=== PATIENT | female | born 1990 | race Caucasian/White ===

== ENCOUNTER 2017-08-03 17:12 | Inpatient (IN) | payer SELFPAY ==
[~2017-08-03] VITALS: Ht 167.6 cm; Wt 92.0 kg
[2017-08-03] MEDS ORDERED: ONDANSETRON 4 MG INJ IV STA ×2 (18:14→19:32)
[2017-08-03] MEDS ORDERED: SOD CHLORIDE 0.9% 1,000 ML IV STA (18:14)
[2017-08-03] MEDS ORDERED: morphine 4 MG/ML VIAL IV STA ×2 (18:14→19:32)
--- NOTE | 2017-08-03 19:16 | RADRPT ---
PROCEDURE: US Abdomen. CLINICAL INDICATION: abdominal pain TECHNIQUE: Multiple real-time images were acquired of the patient's right upper quadrant abdomen a nd retroperitoneum utilizing a high resolution transducer. COMPARISON: None FINDINGS: The study is limited due to the patient's body habitus and inability to hold breath. The liver demonstrates increased echogenicity. The liver is normal in size and no focal solid lesio ns are seen. The liver measures 17.5 cm in length. The portal vein is patent with normal direction o f flow. No intrahepatic biliary dilatation is seen. No gallstones are identified within the gallbladder. There is no pericholecystic fluid or gallbladd er wall thickening. The common bile duct measures 4.0 mm in maximal dimension. The visualized portions of the pancreas are unremarkable. The tail of the pancreas is not seen. No free fluid is identified. The right kidney is normal in size, and demonstrate normal echogenicity and cortical thickness. The right kidney measures 11.5 cm in long dimension. There is no evidence of hydronephrosis. There are no kidney stones. RPTAT: AA IMPRESSION: Mild fatty infiltration of the liver. No evidence of gallstones. .Prince Joyner MD, MD Date Time Electronically viewed and signed by .Prince Joyner MD, on 08/03/2017 19:16 .S/
[2017-08-03] MEDS ORDERED: SOD CHLORIDE 0.9% 1,000 ML IV SCH (20:26)
[2017-08-03] MEDS ORDERED: METOCLOPRAMIDE 10 MG INJ IV ONE (20:30)
[2017-08-03] MEDS ORDERED: DEXTROSE 50% 50 ML SYRINGE IV PRN ×4 (20:30→22:30)
[2017-08-03] MEDS ORDERED: METOCLOPRAMIDE 10 MG INJ IV PRN (20:30)
[2017-08-03] MEDS ORDERED: SOD CHLORIDE 0.9% 1,000 ML IV ONE (20:30)
[2017-08-03] MEDS ORDERED: ACETAMINOPHEN 650MG/20.3ML CUP PO PRN (20:30)
--- NOTE | 2017-08-03 20:34 | HP ---
Date/Time of Note Date/Time of Note DATE: 08/03/17 TIME: 20:34 Assessment/Plan VTE Prophylaxis VTE Prophylaxis Intervention: SCD's Assessment/Plan Chief Complaint/Hosp Course 3.This is a 26 year female being admitted to the ICU floor for: #1 DKA: Secondary to long-standing history of diabetes and noncompliance of medications. At the current time will initiate DKA protocol. initiate insulin drip. BMPs every 2-3 hours. Potassium replacement and IV fluids as indicated. Hemoglobin A1c. Endocrine consult: #2 Diabetes mellitus: We will check hemoglobin A1c, currently patient will be on DKA protocol, please see #1. Initiate home medications as indicated based on hemoglobin A1c levels and endocrine recommendations. Patient reports adverse side effects to metformin so she will not be able to be on them. Check urine microalbumin. Initiate MIKEY if indicated. #3 hypertension: Patient reports a history of hypertension will need to monitor blood pressure. Start MIKEY inhibitor as first agent if patient does indeed have hypertension. #4 obesity: We will check hemoglobin A1c, lipid panel, TSH #5 leukocytosis: Patient is afebrile. And currently no source of infection at this time. Will continue to monitor the patient repeat white blood cell count in the a.m. And observe for any signs of infection. #6 DVT GI prophylaxis: SCDs, Protonix Further treatment strategy will be provided as per the clinical course Problems: HPI/ROS Admit Date/Time Admit Date/Time Hx of Present Illness Chief complaint: Nausea vomiting, abdominal pain This is a 26-year-old female with past medical history of type 2 diabetes diagnosed in 2008, not taking diabetes medications as she ran out of insurance. Currently to the emergency department with complaints of dizziness, multiple episodes of nausea and vomiting which began this morning. She has had 10 episodes of nonbilious and nonbloody emesis. Patient states that she was drinking last night as well. Times are intermittent but worsening. She denies any significant fevers, chills, excessive thirst, excessive urination, or other symptoms currently. Allergies: Metformin Medications: None ROS Const: As per HPI Eyes : No pain discharge or redness or change in visual acuity ENT: No pain, sore throat, congestion, congestion, dysphagia or discharge Respiratory: No shortness of breath, cough, sputum, wheezing, or pleuritic pain Cardiovascular: No chest pain, palpitation, PND, or edema GI : As per HPI Genitourinary: No dysuria, hematuria, flank pain , discharge or CVA tenderness Musculoskeletal: No joint pain, back pain, neck pain, restricted range of motion in neck or joints Skin: No rash, bruising or hives Neuro: No headache, dizziness, syncope, seizure, focal weakness Endocrine: As per HPI Psych: No hallucination, depression, anxiety or suicidal ideation PMH/Family/Social Past Medical History Diabetes mellitus, hypertension Past Surgical History Pilonidal cyst removal Social History Alcohol Use: occasionally Smoking Status: Current every day smoker (Half a pack per day 13 years,) Exam/Review of Systems Vital Signs Vitals Vital Signs Date Time Temp Pulse Resp B/P Pulse Ox O2 Delivery O2 Flow Rate FiO2 08/03/17 19:55 99.2 60 20 138/76 97 Room Air Exam Exam General: Patient is sitting in bed in moderate distress from repeated bouts of vomiting, obese HEENT: Atraumatic, normocephalic. The pupils are equal, round and reactive. Extraocular motor are intact Neck: Supple with full range of motion. No rigidity or meningismus Chest: Nontender Lungs: Clear to auscultation bilaterally no crackles rales or wheezing Heart: Normal S1-S2, Regular rhythm and rate. No murmur, S3, or S4 Abdomen: Soft, nondistended, mild tenderness at the umbilical region, normal bowel sound, Extremities: Normal to inspection, no edema no cyanosis Neurologic: Normal mental status, speech normal, cranial nerves II through XII are intact, motor and sensory are intact, no focal weakness Additional Comments PROCEDURE: US Abdomen. CLINICAL INDICATION: abdominal pain TECHNIQUE: Multiple real-time images were acquired of the patient's right upper quadrant abdomen and retroperitoneum utilizing a high resolution transducer. COMPARISON: None FINDINGS: The study is limited due to the patient's body habitus and inability to hold breath. The liver demonstrates increased echogenicity. The liver is normal in size and no focal solid lesions are seen. The liver measures 17.5 cm in length. The portal vein is patent with normal direction of flow. No intrahepatic biliary dilatation is seen. No gallstones are identified within the gallbladder. There is no pericholecystic fluid or gallbladder wall thickening. The common bile duct measures 4.0 mm in maximal dimension. The visualized portions of the pancreas are unremarkable. The tail of the pancreas is not seen. No free fluid is identified. The right kidney is normal in size, and demonstrate normal echogenicity and cortical thickness. The right kidney measures 11.5 cm in long dimension. There is no evidence of hydronephrosis. There are no kidney stones. RPTAT: AA IMPRESSION: Mild fatty infiltration of the liver. No evidence of gallstones. .Prince Joyner MD, MD Date Time Electronically viewed and signed by .Prince Joyner MD, on 08/03/2017 19: 16 .S/ CC: NABILA WRIGHT PA-C Labs Result Diagram: 08/03/17181408/03/171814 Medications Medications Current Medications Sodium Chloride (NS) 1,000 ml @ 1,000 mls/hr Q1H ONCE IV Last administered on 08/03/17t 20:29; Admin Dose 1,000 MLS/HR; Start 08/03/17 at 20:30; Stop at 21:29 Dextrose (D50w Syringe) 50 ml Q15M PRN IV For BS 50 or less; Start 08/03/17 at 20:30; Status UNV Dextrose 25 ml 25 ml Q15M PRN IV BS between 50-70; Start 08/03/17 at 20:30; Status UNV Sodium Chloride 1,000 ml @ 1,000 mls/hr Q1H IV ; Start 08/03/17 at 20:26; Stop 08/03/17 at 21:25; Status UNV Lactated Ringer's 1,000 ml @ 1,000 mls/hr Q1H IV ; Start 08/03/17 at 21:26; Stop 08/03/17 at 22:25; Status UNV Potassium Chloride/Sodium Chloride (KCl/NS) 1,015 ml @ 200 mls/hr Q5H5M IV ; Start 08/03/17 at 22:26; Stop 08/04/17 at 00:25; Status UNV Diagnostic Test (Pha) (Accu-Chek) 1 ea Q1H XX ; Start 08/03/17 at 20:30; Status UNV Ondansetron HCl (Zofran Inj) 4 mg Q6H PRN IV NAUSEA AND/OR VOMITING; Start 08/03/17 at 20:30; Status UNV Metoclopramide HCl (Reglan) 10 mg Q6H PRN IV NAUSEA AND/OR VOMITING; Start 08/03/17 at 20:30; Status UNV Acetaminophen (Tylenol Liquid) 650 mg Q6H PRN PO PAIN LEVEL 1-3 OR FEVER; Start 08/03/17 at 20:30; Status UNV Pantoprazole (Protonix Iv) 40 mg DAILY@06 IV ; Start 08/04/17 at 06:00; Status UNV EN GUAJARDO Aug 03, 2017 20:34
[2017-08-03] MEDS ORDERED: INSULIN HUMAN REGULAR 100 UNIT in SOD CHLORIDE 0.9% 99 ML IV SCH ×2 (21:00→22:30)
[2017-08-03] MEDS ORDERED: LACTATED RINGER'S 1,000 ML IV SCH (21:26)
[2017-08-03] MEDS: ACCU-CHEK XX SCH ×3 (22:02→23:29)
--- NOTE | 2017-08-03 22:17 | ERD ---
ER Documentation Chief Complaint Chief Complaint nausea/vomiting /dizziness onset today , not taking dm meds x 6 months HPI Patient is a 26-year-old female with past medical history of type 2 diabetes diagnosed in 2008, not taking diabetes medications currently to the emergency department with complaints of dizziness, multiple episodes of nausea and vomiting which began this morning. She has had 10 episodes of nonbilious and nonbloody emesis. Times are intermittent but worsening. She denies any significant fevers, chills, excessive thirst, excessive urination, or other symptoms currently. ROS All systems reviewed and are negative except as per history of present illness. Medications Home Meds No Active Prescriptions or Reported Meds Allergies Allergies: Coded Allergies: metformin (Unverified Allergy, Unknown, 08/03/17) PMhx/Soc Hx Alcohol Use: Yes (every weekend) Hx Substance Use: No Hx Tobacco Use: Yes Smoking Status: Current every day smoker Physical Exam Vitals Vital Signs Date Time Temp Pulse Resp B/P Pulse Ox O2 Delivery O2 Flow Rate FiO2 08/03/17 19:55 99.2 60 20 138/76 97 Room Air 08/03/17 17:14 98.5 89 22 142/108 100 Physical Exam Const: Slightly ill-appearing female resting in the [place], in no acute distress. Head: Atraumatic Eyes: Normal Conjunctiva ENT: Normal External Ears, Nose and Mouth. Neck: Full range of motion..~ No meningismus. Resp: Clear to auscultation bilaterally. Slight tachypnea noted. Cardio: Regular rate and rhythm, no murmurs Abd: Soft, Tenderness palpation of the right upper quadrant, but no true Chapman sign., non distended. Normal bowel sounds. No McBurney's point tenderness. Skin: No petechiae or rashes Back: No midline or flank tenderness Ext: No cyanosis, or edema Neur: Awake and alert Psych: Normal Mood and Affect Result Diagram: 08/03/17181408/03/171814 Results 24 hrs Laboratory Tests Test 08/03/17 17:31 08/03/17 18:00 08/03/17 18:15 08/03/17 21:51 Bedside Glucose 290mg/dL 246mg/dL Urine Color YELLOW Urine Clarity CLEAR Urine pH 5.0 Urine Specific [place] 1.029 Urine Ketones 2+mg/dL Urine Nitrite NEGATIVEmg/dL Urine Bilirubin NEGATIVEmg/dL Urine Urobilinogen NEGATIVEmg/dL Urine Leukocyte Esterase NEGATIVELeu/ul Urine Microscopic RBC 12/HPF Urine Microscopic WBC 3/HPF Urine Squamous Epithelial Cells FEW/HPF Urine Hemoglobin 1+mg/dL Urine Glucose 3+mg/dL Urine Total Protein 2+mg/dl White Blood Count 17.510^3/ul Red Blood Count 5.8310^6/ul Hemoglobin 16.8g/dl Hematocrit 46.5% Mean Corpuscular Volume 79.8fl Mean Corpuscular Hemoglobin 28.8pg Mean Corpuscular Hemoglobin Concent 36.1g/dl Red Cell Distribution Width 12.4% Platelet Count 60039^3/UL Mean Platelet Volume 13.0fl Neutrophils % 77.9% Lymphocytes % 14.3% Monocytes % 7.1% Eosinophils % 0.1% Basophils % 0.3% Nucleated Red Blood Cells % 0.0/100WBC Neutrophils # 13.610^3/ul Lymphocytes # 2.510^3/ul Monocytes # 1.310^3/ul Eosinophils # 0.010^3/ul Basophils # 0.110^3/ul Nucleated Red Blood Cells # 0.010^3/ul Prothrombin Time 13.4Sec Prothrombin Time Ratio 1.0 INR International Normalized Ratio 1.02 Activated Partial Thromboplast Time 22.0Sec Sodium Level 141mmol/L Potassium Level 3.5mmol/L Chloride Level 99mmol/L Carbon Dioxide Level 17mmol/L Anion Gap 29 Blood Urea Nitrogen 16mg/dl Creatinine 0.66mg/dl Glucose Level 347mg/dl Calcium Level 10.0mg/dl Total Bilirubin 0.8mg/dl Direct Bilirubin 0.00mg/dl Indirect Bilirubin 0.8mg/dl Aspartate Amino Transf (AST/SGOT) 27IU/L Alanine Aminotransferase (ALT/SGPT) 42IU/L Alkaline Phosphatase 98IU/L Total Protein 8.6g/dl Albumin 5.0g/dl Globulin 3.60g/dl Albumin/Globulin Ratio 1.38 Lipase 57U/L Current Medications Medications (Trade) Dose Ordered Sig/Meredith Route PRN Reason Start Time Stop Time Status Last Admin Dose Admin Sodium Chloride (NS) 1,000 ml @ 1,000 mls/hr Q1H STAT IV 08/03/17 18:14 08/03/17 19:13 DC 08/03/17 18:43 Morphine Sulfate (morphine) 4 mg ONCE STAT IV 08/03/17 18:14 08/03/17 18:17 DC 08/03/17 18:43 Ondansetron HCl (Zofran Inj) 4 mg ONCE STAT IV 08/03/17 18:14 08/03/17 18:17 DC 08/03/17 18:43 Morphine Sulfate (morphine) 4 mg ONCE STAT IV 08/03/17 19:32 08/03/17 19:33 DC 08/03/17 19:33 Ondansetron HCl (Zofran Inj) 4 mg ONCE STAT IV 08/03/17 19:32 08/03/17 19:33 DC 08/03/17 19:33 Metoclopramide HCl 10 mg 10 mg ONCE ONCE IV 08/03/17 20:30 08/03/17 20:31 DC 08/03/17 20:26 Sodium Chloride (NS) 1,000 ml @ 1,000 mls/hr Q1H ONCE IV 08/03/17 20:30 08/03/17 21:29 DC 08/03/17 20:29 Dextrose (D50w Syringe) 50 ml Q15M PRN IV For BS 50 or less 08/03/17 20:30 Dextrose 25 ml 25 ml Q15M PRN IV BS between 50-70 08/03/17 20:30 Sodium Chloride 1,000 ml @ 1,000 mls/hr Q1H IV 08/03/17 20:26 08/03/17 21:25 DC Lactated Ringer's 1,000 ml @ 1,000 mls/hr Q1H IV 08/03/17 21:26 08/03/17 22:25 Potassium Chloride 30 meq/ Sodium Chloride 1,015 ml @ 200 mls/hr Q5H5M IV 08/03/17 22:26 08/04/17 00:25 Insulin Human Regular/Sodium Chloride (Novolin-R/NS) 100 ml @ 9.11 mls/hr DKA PROTOCOL IV 08/03/17 21:00 08/03/17 22:00 Diagnostic Test (Pha) (Accu-Chek) 1 ea Q1H XX 08/03/17 20:30 Miscellaneous Information HYPOGLYCEMIA TREATMENT HYPOGLYCEM PROTOCOL PRN XX Hypoglycemia (BS < 70) 08/03/17 20:30 Potassium Chloride (KCl 10 MEQ/50 ML SW) 50 ml @ 50 mls/hr K PROTOCOL PRN IVPB PENDING LAB VALUE 08/03/17 20:30 Ondansetron HCl (Zofran Inj) 4 mg Q6H PRN IV NAUSEA AND/OR VOMITING 08/03/17 20:30 Metoclopramide HCl (Reglan) 10 mg Q6H PRN IV NAUSEA AND/OR VOMITING 08/03/17 20:30 Acetaminophen (Tylenol Liquid) 650 mg Q6H PRN PO PAIN LEVEL 1-3 OR FEVER 08/03/17 20:30 Pantoprazole (Protonix Iv) 40 mg DAILY@06 IV 08/04/17 06:00 Miscellaneous Information (* Miscellaneous Pharmacy Order) Discontinue all previ... PROTOCOL ONCE XX 08/03/17 22:30 08/03/17 22:31 UNV Diagnostic Test (Pha) 1 ea 1 ea Q1H XX 08/03/17 22:30 UNV Insulin Human Regular/Sodium Chloride (Novolin-R/NS) 100 ml @ 0 mls/hr PER PROTOCOL IV 08/03/17 22:30 UNV Miscellaneous Information (* Miscellaneous Pharmacy Order) Treatment of Hypoglycemia: 1.BG 51... Per protocol XX 08/03/17 22:30 UNV Dextrose (D50w Syringe) 25 ml Q15M PRN IV Till BS 80 mg/dL or above x2 08/03/17 22:30 UNV Dextrose (D50w Syringe) 50 ml Q15M PRN IV Till BS 80 mg/dL or above x2 08/03/17 22:30 UNV Procedures/MDM 26-year-old female presents to the emergency department with complaints of multiple episodes of nausea and vomiting today. Physical examination was essentially unremarkable except for the fact that the patient was slightly diaphoretic and tachypneic. The patient was placed in a gurney. IV line established. Patient was given 2 L of IV normal saline, IV morphine, IV Zofran , IV Reglan. Nausea and vomiting was controlled in the department. Initially, the patient's blood glucose level was 290 on POC. Patient's blood glucose was then rechecked through the [facility] that was 347. After approximately 1.5 L of normal saline, the patient's blood pressure dropped to 246. CBC showed leukocytosis with left shift, likely reactive in nature. The remainder of the patient's chemistry panel was reviewed and showed low CO2 at 17. Increased anion gap at 29. The remainder of the chemistry panel was not concerning for any other abnormalities. Review of urinalysis showed 2+ ketones, 3+ glucose, 2 + protein, consistent with a mild diabetic ketoacidosis. Because the patient was also experiencing some right upper quadrant tenderness, gallbladder ultrasound was ordered which showed mild fatty infiltration of the liver, no evidence of gallstones. Patient remained stable throughout her ED course. After review of the patient's laboratory results, I spoke to the attending physician, Dr. Yazan Trevino, who became involved in the patient's care and facilitated admission for the patient. PROCEDURE: US Abdomen. CLINICAL INDICATION: abdominal pain TECHNIQUE: Multiple real-time images were acquired of the patient's right upper quadrant abdomen and retroperitoneum utilizing a high resolution transducer. COMPARISON: None FINDINGS: The study is limited due to the patient's body habitus and inability to hold breath. The liver demonstrates increased echogenicity. The liver is normal in size and no focal solid lesions are seen. The liver measures 17.5 cm in length. The portal vein is patent with normal direction of flow. No intrahepatic biliary dilatation is seen. No gallstones are identified within the gallbladder. There is no pericholecystic fluid or gallbladder wall thickening. The common bile duct measures 4.0 mm in maximal dimension. The visualized portions of the pancreas are unremarkable. The tail of the pancreas is not seen. No free fluid is identified. The right kidney is normal in size, and demonstrate normal echogenicity and cortical thickness. The right kidney measures 11.5 cm in long dimension. There is no evidence of hydronephrosis. There are no kidney stones. RPTAT: AA IMPRESSION: Mild fatty infiltration of the liver. No evidence of gallstones. .Prince Joyner MD, MD Date Time Electronically viewed and signed by .Prince Joyner MD, on 08/03/2017 19: 16 Departure Diagnosis: Primary Impression: Diabetic ketoacidosis Diabetes mellitus type: other specified (including STALIN) Diabetes mellitus complication detail: without coma Qualified Code: E13.10 - Diabetic ketoacidosis without coma associated with other specified diabetes mellitus Additional Impression: Diabetes mellitus, new onset Condition: NABILA Tejeda PA-C Aug 03, 2017 22:17
[2017-08-03 22:21] VITALS: TEMP 99.2
[2017-08-03] MEDS ORDERED: POTASSIUM CHLORIDE 30 MEQ in SOD CHLORIDE 0.9% 1,000 ML IV SCH (22:26)
[2017-08-03] MEDS ORDERED: ACCU-CHEK XX SCH (22:30)
--- NOTE | 2017-08-03 22:43 | QN ---
Documentation Comment I have seen and evaluated the patient along with the PA and/or SITE IDENTIFICATION SPECIALIST provider. I agree with the evaluation and plan of care. Please see their documentation for full ER course and evaluation. Initial presentation: 26-year-old young woman with a history of diabetes mellitus presents with multiple episodes of vomiting and generalized weakness. She was diagnosed many years ago and has not been using medications. On exam: GENERAL: Young woman appears dehydrated, afebrile HEENT: Dry mucous membranes, pink conjunctiva, no cervical spine deformity NEURO: Alert and oriented 3, cranial nerves II through XII intact bilaterally, pupils equal round reactive to light, CARDIAC: Tachycardic and regular, no murmurs rubs or gallops EXTREMITIES: No clubbing cyanosis or edema, calves are bilaterally symmetrical, no Homans sign, no popliteal cord sign. PSYCH: Normal affect without agitation or irritability Assessment and plan: Patient was given aggressive IV hydration here and insulin therapy. She was found to have hyperglycemia and elevated anion gap consistent with mild to moderate diabetic ketoacidosis. She will be admitted to intensive care unit for continued medical management and IV hydration. Ultrasound imaging demonstrated ED was unremarkable. Accepting care team and consultations: I discussed the current laboratory data, diagnostic imaging and emergency care provided. Admitting team: Dr. Tracy Admitting team indication: Insurance directed Consulting services: Endocrinology DERECK DIEHL MD Aug 03, 2017 22:43
[2017-08-04] VITALS (23 sets, daily range): BP systolic 102–147; BP diastolic 66–104; PULSE 53–90; RESP 17–32; Ht 167.6 cm; Wt 92.0 kg
[2017-08-04] MEDS: ONDANSETRON 4 MG INJ IV PRN ×3 (01:02→17:14)
[2017-08-04] MEDS: D5W-0.45 NACL + KCL 20 MEQ 1,000 ML IV SCH ×3 (01:03→13:36)
[2017-08-04] MEDS: ACCU-CHEK XX SCH ×8 (01:30→08:33)
[2017-08-04] MEDS: POTASSIUM CHLORIDE 50 ML IVPB PRN ×5 (05:13→15:06)
[2017-08-04] MEDS ORDERED: PANTOPRAZOLE 40 MG INJ IV SCH (06:00)
--- NOTE | 2017-08-04 09:13 | PN ---
Date/Time of Note Date/Time of Note DATE: 08/04/17 TIME: 09:12 Assessment/Plan VTE Prophylaxis VTE Prophylaxis Intervention: SCD's Assessment/Plan Chief Complaint/Hosp Course 1. Diabetic ketoacidosis. Currently on insulin drip. The patient's anion gap is has been closed. We will stop the insulin drip after giving a single dose of Lantus insulin. telehealth nurse educator and endocrinology to evaluate the patient. 2. Type 2 diabetes mellitus. The patient intolerant to metformin. The patient was off medications for the past 6 months because of insurance reasons. The patient will be started on sliding scale insulin along with basal insulin and pre-meal insulin. Endocrinology to evaluate the patient. Hemoglobin A1c 10.9. 3. Leukocytosis. Etiology unclear. The patient remains afebrile. No evidence of any infectious process. We will monitor. 4. History of essential hypertension. We will monitor the patient's blood pressure closely. If essential, she will be started on MIKEY inhibitors. 5. Obesity. BMI of 32.7 kg/m. Weight reduction will be advised. 6. Nicotine use. Cessation advised. 7. Fluids, electrolytes, and nutrition. Continue IV hydration. Once the patient tolerates oral intake, IV fluids will be discontinued. The patient to be started on a carbohydrate controlled diet. 8. DVT prophylaxis. Bilateral sequential compression devices. 9. Gastrointestinal prophylaxis with proton pump inhibitors. 10. Plan. Wean off insulin drip. Start the patient on sliding scale insulin. Await endocrinology evaluation. Case discussed with Dr. Moeller. Critical CARE time: 35 minutes. Problems: Subjective 24 Hr Interval Summary Free Text/Dictation Denies any complaints. Feeling hungry. Exam/Review of Systems Vital Signs Vitals Vital Signs Date Time Temp Pulse Resp B/P Pulse Ox O2 Delivery O2 Flow Rate FiO2 08/04/17 05:30 85 20 102/74 97 08/04/17 02:30 Room Air 08/04/17 00:00 97.9 08/03/17 22:21 2.0 Intake and Output 08/03/17 08/03/17 08/04/17 15:00 23:00 07:00 Intake Total 930 ml Output Total 500 ml Balance 430 ml Exam General: Obese 26 year-old female lying in bed in no apparent distress. HEENT: Normocephalic, atraumatic. Eyes: Anicteric sclerae, conjunctivae clear. ENT: Nasal septum midline, oral mucosa moist. Neck supple, no JVD noticed. Respiratory: Bilaterally clear breath sounds. No use of accessory muscles of respiration. No adventitious breath sounds. Cardiovascular: S1, S2 heard. No murmurs or gallops. Abdomen: Soft, nontender, and nondistended. Bowel sounds positive in all 4 quadrants. Genitourinary: Deferred. Extremities: No cyanosis, no clubbing, no edema. Peripheral pulses palpable. Neurologic: Cranial nerves II through XII grossly intact. The patient is awake, alert, and oriented. Skin: Normal skin turgor. No skin rashes. Results Result Diagram: 08/03/17 1815 08/04/17 0716 Results 24 hrs Laboratory Tests Test 08/03/17 17:31 08/03/17 18:00 08/03/17 18:15 08/03/17 21:51 Bedside Glucose 290 H 246 H Urine Color YELLOW Urine Clarity CLEAR Urine pH 5.0 Urine Specific [place] 1.029 Urine Ketones 2+ H Urine Nitrite NEGATIVE Urine Bilirubin NEGATIVE Urine Urobilinogen NEGATIVE Urine Leukocyte Esterase NEGATIVE Urine Microscopic RBC 12 H Urine Microscopic WBC 3 Urine Squamous Epithelial Cells FEW Urine Hemoglobin 1+ H Urine Glucose 3+ H Urine Total Protein 2+ H White Blood Count 17.5 H Red Blood Count 5.83 H Hemoglobin 16.8 H Hematocrit 46.5 Mean Corpuscular Volume 79.8 L Mean Corpuscular Hemoglobin 28.8 L Mean Corpuscular Hemoglobin Concent 36.1 Red Cell Distribution Width 12.4 Platelet Count 263 Mean Platelet Volume 13.0 H Neutrophils % 77.9 H Lymphocytes % 14.3 L Monocytes % 7.1 Eosinophils % 0.1 Basophils % 0.3 Nucleated Red Blood Cells % 0.0 Neutrophils # 13.6 H Lymphocytes # 2.5 Monocytes # 1.3 H Eosinophils # 0.0 Basophils # 0.1 Nucleated Red Blood Cells # 0.0 Prothrombin Time 13.4 Prothrombin Time Ratio 1.0 INR International Normalized Ratio 1.02 Activated Partial Thromboplast Time 22.0 L Sodium Level 141 Potassium Level 3.5 Chloride Level 99 Carbon Dioxide Level 17 L Anion Gap 29 H Blood Urea Nitrogen 16 Creatinine 0.66 Glucose Level 347 H Hemoglobin A1c 10.9 H Calcium Level 10.0 Phosphorus Level 2.7 Total Bilirubin 0.8 Direct Bilirubin 0.00 Indirect Bilirubin 0.8 Aspartate Amino Transf (AST/SGOT) 27 Alanine Aminotransferase (ALT/SGPT) 42 Alkaline Phosphatase 98 Total Protein 8.6 H Albumin 5.0 H Globulin 3.60 H Albumin/Globulin Ratio 1.38 Lipase 57 Test 08/03/17 22:37 08/03/17 23:26 08/03/17 23:55 08/04/17 01:30 Bedside Glucose 208 178 194 229 H Test 08/04/17 02:48 08/04/17 03:42 08/04/17 03:46 08/04/17 04:32 Bedside Glucose 244 H 209 190 Sodium Level 142 Potassium Level 3.3 L Chloride Level 108 Carbon Dioxide Level 21 Anion Gap 16 # Blood Urea Nitrogen 12 Creatinine 0.57 Glucose Level 226 #H Calcium Level 7.9 L Test 08/04/17 05:32 08/04/17 06:22 08/04/17 07:16 08/04/17 08:16 Bedside Glucose 172 141 177 White Blood Count Pending Red Blood Count Pending Hemoglobin Pending Hematocrit Pending Mean Corpuscular Volume Pending Mean Corpuscular Hemoglobin Pending Mean Corpuscular Hemoglobin Concent Pending Red Cell Distribution Width Pending Platelet Count Pending Mean Platelet Volume Pending Sodium Level 141 Potassium Level 3.4 L Chloride Level 108 Carbon Dioxide Level 22 Anion Gap 14 Blood Urea Nitrogen 10 Creatinine 0.52 Glucose Level 177 Calcium Level 7.6 L Phosphorus Level 3.0 Test 08/04/17 09:00 Bedside Glucose 172 Medications Medications Current Medications Dextrose (D50w Syringe) 50 ml Q15M PRN IV For BS 50 or less; Start 08/03/17 at 20:30 Dextrose (D50w Syringe) 25 ml Q15M PRN IV BS between 50-70; Start 08/03/17 at 20:30 Diagnostic Test (Pha) (Accu-Chek) 1 ea Q1H XX Last administered on 08/04/17 08 :33; Admin Dose 1 EA; Start 08/03/17 at 20:30 Ondansetron HCl (Zofran Inj) 4 mg Q6H PRN IV NAUSEA AND/OR VOMITING Last administered on 08/04/17 01:02; Admin Dose 4 MG; Start 08/03/17 at 20:30 Metoclopramide HCl (Reglan) 10 mg Q6H PRN IV NAUSEA AND/OR VOMITING Last administered on 08/04/17 01:10; Admin Dose 10 MG; Start 08/03/17 at 20:30 Acetaminophen (Tylenol Liquid) 650 mg Q6H PRN PO PAIN LEVEL 1-3 OR FEVER; Start 08/03/17 at 20:30 Pantoprazole 40 mg 40 mg DAILY@06 IV Last administered on 08/04/17 05:10; Admin Dose 40 MG; Start 08/04/17 at 06:00 Potassium Chloride/Dextrose/ Sod Cl (D5-1/2ns + KCl 20 Meq) 1,000 ml @ 150 mls/ hr Q6H40M IV Last administered on 08/04/17 06:23; Admin Dose 150 MLS/HR; Start 08/04/17 at 00:45 Insulin Glargine (Lantus) 12 unit ONCE ONCE SC ; Start 08/04/17 at 09:30; Stop 08/04/17 at 09:31; Status UNV Miscellaneous Information (* Miscellaneous Pharmacy Order) Discontinue current oral sulfonylur... ONCE ONCE XX ; Start 08/04/17 at 09:30; Stop 08/04/17 at 09: 31; Status UNV Diagnostic Test (Pha) (Accu-Chek) 1 ea 02 XX ; Start 08/05/17 at 02:00; Status UNV Insulin Glargine (Lantus) 23 unit DAILY@08 SC ; Start 08/05/17 at 08:00; Status UNV Miscellaneous Information (* Miscellaneous Pharmacy Order) HYPOGLYCEMIA PROTOCOL w... ONCE ONCE XX ; Start 08/04/17 at 09:30; Stop 08/04/17 at 09:31; Status UNV Miscellaneous Information (* Miscellaneous Pharmacy Order) Discontinue all previ... ONCE ONCE XX ; Start 08/04/17 at 09:30; Stop 08/04/17 at 09:31; Status UNV Diagnostic Test (Pha) (Accu-Chek) 1 ea 02 XX ; Start 08/05/17 at 02:00; Status UNV LONDON PATRICIA NP Aug 04, 2017 09:13
[2017-08-04] MEDS ORDERED: GLUCOSE GEL 15 GRAM TUBE BUCCAL PRN (09:30)
[2017-08-04] MEDS ORDERED: DEXTROSE 50% 50 ML SYRINGE IV PRN ×2 (09:30)
[2017-08-04] MEDS ORDERED: GLUCOSE GEL 15 GRAM TUBE PO PRN ×2 (09:30)
[2017-08-04] MEDS ORDERED: INSULIN GLARGINE [LANtus] 3 ML PEN SC ONE (09:30)
[2017-08-04] MEDS ORDERED: GLUCAGON 1 MG INJ IM PRN (09:30)
[2017-08-04] MEDS: INSULIN ASPART [NOVOLOG] 3 ML PEN SC SCH ×5 (11:30→20:58)
--- NOTE | 2017-08-04 14:47 | CONS ---
Date/Time of Note Date/Time of Note DATE: 08/04/17 TIME: 14:43 Assessment/Plan Assessment/Plan Problems: (1) Secondary DM with DKA, uncontrolled Status: Chronic Comment: There are ways to get her medications which are somewhat intricate but doable. Will work with her on that. In the meantime her she is out of DKA and doing better and her sugars are controlled. Because of this I would advocate to remove her from the ICU to regular floor bed or even discharge her. I will follow-up with her as an outpatient in the office. (2) Obesity (BMI 30.0-34.9) Status: Chronic Comment: Strongly counseled about the interplay of body mass index and diabetes Consultation Date/Type/Reason Admit Date/Time August 03, 2017 Date of Consultation: Aug 04, 2017 Type of Consultation: Endocrinology Reason for Consultation Diabetes mellitus type 2 now admitted with low-grade DKA Referring Provider: NABILA LUI MD Hx of Present Illness Charming 26-year-old [facility] born in [place]. She has a history of diabetes mellitus type 2 and had been on oral agent therapy. Due to loss of insurance she was not under any physician's care. She has been intolerant in the past of Metformin which gave her intractable GI side effects. She was treated with glipizide and Januvia and ultimately was treated with NPH insulin again due to financial constraints she ran out of supplies. She came into the hospital with DKA. Please note she has lost weight having started out at a weight as she reports a 280 pounds. Denies any family history of type 2 diabetes. Constitutional: no complaints (Denies fevers chills or sweats) Eyes: no complaints ENT: no complaints Respiratory: no complaints Cardiovascular: no complaints Gastrointestinal: no complaints Genitourinary: no complaints Musculoskeletal: no complaints Endocrine: polyuria Lymphatic: no complaints Past Medical History Medical History: diabetes, other (Morbid obesity) Past Surgical History Past Surgical Hx: noncontributory Family History Significant Family History: other (Negative for diabetes) Social History Alcohol Use: occasionally Smoking Status: Current every day smoker (Half a pack per day 13 years,) Drug Use: marijuana Exam/Review of Systems Vital Signs Vitals Vital Signs Date Time Temp Pulse Resp B/P Pulse Ox O2 Delivery O2 Flow Rate FiO2 08/04/17 12:00 62 08/04/17 11:00 18 130/84 100 Room Air 08/04/17 08:00 98.1 08/03/17 22:21 2.0 Intake and Output 08/03/17 08/03/17 08/04/17 15:00 23:00 07:00 Intake Total 930 ml Output Total 500 ml Balance 430 ml Exam Constitutional: alert, oriented Head: atraumatic, normocephalic Eyes: EOMI, PERRL, nl conjunctiva, nl lids, nl sclera ENMT: mucosa pink and moist, nl external ears & nose, nl lips & teeth, nl nasal mucosa & septum Neck: non-tender, supple Respiratory: clear to auscultation, normal air movement Cardiovascular: nl pulses, regular rate and rhythm Gastrointestinal: nl liver, spleen, non-tender, soft Extremities: normal pulses Neurological: HOME HEALTH SPEECH THERAPIST II-XII intact, nl mental status, nl speech, nl strength Results Result Diagram: 08/04/17 0716 08/04/17 1201 Results 24 hrs Laboratory Tests Test 08/03/17 17:31 08/03/17 18:00 08/03/17 18:15 08/03/17 21:51 Bedside Glucose 290 H 246 H Urine Color YELLOW Urine Clarity CLEAR Urine pH 5.0 Urine Specific [place] 1.029 Urine Ketones 2+ H Urine Nitrite NEGATIVE Urine Bilirubin NEGATIVE Urine Urobilinogen NEGATIVE Urine Leukocyte Esterase NEGATIVE Urine Microscopic RBC 12 H Urine Microscopic WBC 3 Urine Squamous Epithelial Cells FEW Urine Hemoglobin 1+ H Urine Glucose 3+ H Urine Total Protein 2+ H White Blood Count 17.5 H Red Blood Count 5.83 H Hemoglobin 16.8 H Hematocrit 46.5 Mean Corpuscular Volume 79.8 L Mean Corpuscular Hemoglobin 28.8 L Mean Corpuscular Hemoglobin Concent 36.1 Red Cell Distribution Width 12.4 Platelet Count 263 Mean Platelet Volume 13.0 H Neutrophils % 77.9 H Lymphocytes % 14.3 L Monocytes % 7.1 Eosinophils % 0.1 Basophils % 0.3 Nucleated Red Blood Cells % 0.0 Neutrophils # 13.6 H Lymphocytes # 2.5 Monocytes # 1.3 H Eosinophils # 0.0 Basophils # 0.1 Nucleated Red Blood Cells # 0.0 Prothrombin Time 13.4 Prothrombin Time Ratio 1.0 INR International Normalized Ratio 1.02 Activated Partial Thromboplast Time 22.0 L Sodium Level 141 Potassium Level 3.5 Chloride Level 99 Carbon Dioxide Level 17 L Anion Gap 29 H Blood Urea Nitrogen 16 Creatinine 0.66 Glucose Level 347 H Hemoglobin A1c 10.9 H Calcium Level 10.0 Phosphorus Level 2.7 Total Bilirubin 0.8 Direct Bilirubin 0.00 Indirect Bilirubin 0.8 Aspartate Amino Transf (AST/SGOT) 27 Alanine Aminotransferase (ALT/SGPT) 42 Alkaline Phosphatase 98 Total Protein 8.6 H Albumin 5.0 H Globulin 3.60 H Albumin/Globulin Ratio 1.38 Lipase 57 Test 08/03/17 22:37 08/03/17 23:26 08/03/17 23:55 08/04/17 01:30 Bedside Glucose 208 178 194 229 H Test 08/04/17 02:48 08/04/17 03:42 08/04/17 03:46 08/04/17 04:32 Bedside Glucose 244 H 209 190 Sodium Level 142 Potassium Level 3.3 L Chloride Level 108 Carbon Dioxide Level 21 Anion Gap 16 # Blood Urea Nitrogen 12 Creatinine 0.57 Glucose Level 226 #H Calcium Level 7.9 L Test 08/04/17 05:32 08/04/17 06:22 08/04/17 07:00 08/04/17 07:16 Bedside Glucose 172 141 Triglycerides Level 269 H Cholesterol Level 163 LDL Cholesterol, Calculated 70 HDL Cholesterol 39 Cholesterol/HDL Ratio 4.1 White Blood Count 14.5 H Red Blood Count 4.61 # Hemoglobin 13.2 # Hematocrit 38.4 Mean Corpuscular Volume 83.3 Mean Corpuscular Hemoglobin 28.6 L Mean Corpuscular Hemoglobin Concent 34.4 Red Cell Distribution Width 12.9 Platelet Count 190 # Mean Platelet Volume 13.6 H Neutrophils % 67.3 Lymphocytes % 23.4 Monocytes % 8.7 Eosinophils % 0.1 Basophils % 0.2 Nucleated Red Blood Cells % 0.0 Neutrophils # 9.7 H Lymphocytes # 3.4 H Monocytes # 1.3 H Eosinophils # 0.0 Basophils # 0.0 Nucleated Red Blood Cells # 0.0 Sodium Level 141 Potassium Level 3.4 L Chloride Level 108 Carbon Dioxide Level 22 Anion Gap 14 Blood Urea Nitrogen 10 Creatinine 0.52 Glucose Level 177 Calcium Level 7.6 L Phosphorus Level 3.0 Test 08/04/17 08:16 08/04/17 09:00 08/04/17 10:42 08/04/17 11:53 Bedside Glucose 177 172 164 188 Test 08/04/17 12:01 Sodium Level 141 Potassium Level 3.5 Chloride Level 109 Carbon Dioxide Level 22 Anion Gap 14 Blood Urea Nitrogen 7 Creatinine 0.56 Glucose Level 191 Calcium Level 8.0 L Medications Medications Current Medications Ondansetron HCl (Zofran Inj) 4 mg Q6H PRN IV NAUSEA AND/OR VOMITING Last administered on 08/04/17 10:56; Admin Dose 4 MG; Start 08/03/17 at 20:30 Metoclopramide HCl (Reglan) 10 mg Q6H PRN IV NAUSEA AND/OR VOMITING Last administered on 08/04/17 01:10; Admin Dose 10 MG; Start 08/03/17 at 20:30 Acetaminophen (Tylenol Liquid) 650 mg Q6H PRN PO PAIN LEVEL 1-3 OR FEVER; Start 08/03/17 at 20:30 Pantoprazole 40 mg 40 mg DAILY@06 IV Last administered on 08/04/17 05:10; Admin Dose 40 MG; Start 08/04/17 at 06:00 Potassium Chloride/Dextrose/ Sod Cl (D5-1/2ns + KCl 20 Meq) 1,000 ml @ 150 mls/ hr Q6H40M IV Last administered on 08/04/17 13:36; Admin Dose 150 MLS/HR; Start 08/04/17 at 00:45 Diagnostic Test (Pha) (Accu-Chek) 1 ea 02 XX ; Start 08/05/17 at 02:00 Insulin Glargine (Lantus) 23 unit DAILY@08 SC ; Start 08/05/17 at 08:00 Diagnostic Test (Pha) (Accu-Chek) 1 ea 02 XX ; Start 08/05/17 at 02:00 Miscellaneous Information 1 ea NOTE XX ; Start 08/04/17 at 09:30 Glucose (Glutose) 15 gm Q15M PRN PO DECREASED GLUCOSE; Start 08/04/17 at 09:30 Glucose (Glutose) 22.5 gm Q15M PRN PO DECREASED GLUCOSE; Start 08/04/17 at 09: 30 Dextrose (D50w Syringe) 25 ml Q15M PRN IV DECREASED GLUCOSE; Start 08/04/17 at 09:30 Dextrose (D50w Syringe) 50 ml Q15M PRN IV DECREASED GLUCOSE; Start 08/04/17 at 09:30 Glucagon (Glucagen) 1 mg Q15M PRN IM DECREASED GLUCOSE; Start 08/04/17 at 09:30 Glucose (Glutose) 15 gm Q15M PRN BUCCAL DECREASED GLUCOSE; Start 08/04/17 at 09 :30 ELMA JACKSON MD Aug 04, 2017 14:47
[2017-08-05] MEDS ORDERED: ACCU-CHEK XX SCH ×2 (02:00)
[2017-08-05] MEDS: INSULIN ASPART [NOVOLOG] 3 ML PEN SC SCH ×4 (07:50→13:26)
[2017-08-05 07:52] VITALS: BP 119/76; RESP 17
[2017-08-05] MEDS ORDERED: INSULIN GLARGINE [LANtus] 3 ML PEN SC SCH (08:00)
--- NOTE | 2017-08-05 09:45 | PDOCDIS ---
Discharge Instructions DIAGNOSIS Discharge Diagnosis Diabetes mellitus (uncontrolled). CONDITION Patient Condition: Stable HOME CARE INSTRUCTIONS: Special Diet: Carbo-controlled FOLLOW UP/APPOINTMENTS Follow-up Plan Kurt Rose MD Specialty Endocrinology Office Address [address] [place] [address], [address] [place], [place] [id number] Office OTHER ORDERS: Other Orders: 1. Take medications as per prescription. 2. Take a carbohydrate controlled diet. 3. Follow-up with endocrinology [Dr. Rose]. 4. Resume activities as tolerated. 5. Cut down and quit the use of tobacco. LONDON PATRICIA NP Aug 05, 2017 09:44
--- NOTE | 2017-08-05 09:45 | PDOCDIS ---
Discharge Instructions DIAGNOSIS Discharge Diagnosis Diabetes mellitus (uncontrolled). CONDITION Patient Condition: Stable HOME CARE INSTRUCTIONS: Special Diet: Carbo-controlled FOLLOW UP/APPOINTMENTS Follow-up Plan Kurt Rose MD Specialty Endocrinology Office Address [address] [place] [address], [address] [place], [place] [id number] Office OTHER ORDERS: Other Orders: 1. Take medications as per prescription. 2. Take a carbohydrate controlled diet. 3. Follow-up with endocrinology [Dr. Rose]. 4. Resume activities as tolerated. 5. Cut down and quit the use of tobacco. LONDON PATRICIA NP Aug 05, 2017 09:44
--- NOTE | 2017-08-05 09:45 | PDOCDIS ---
Discharge Instructions DIAGNOSIS Discharge Diagnosis Diabetes mellitus (uncontrolled). CONDITION Patient Condition: Stable HOME CARE INSTRUCTIONS: Special Diet: Carbo-controlled FOLLOW UP/APPOINTMENTS Follow-up Plan Kurt Rose MD Specialty Endocrinology Office Address [address] [place] [address], [address] [place], [place] [id number] Office OTHER ORDERS: Other Orders: 1. Take medications as per prescription. 2. Take a carbohydrate controlled diet. 3. Follow-up with endocrinology [Dr. Rose]. 4. Resume activities as tolerated. 5. Cut down and quit the use of tobacco. LONDON PATRICIA NP Aug 05, 2017 09:44
[2017-08-05] MEDS ORDERED: API SQ (09:49)
[2017-08-05] MEDS ORDERED: LANT3I SC (09:49)
[2017-08-05] MEDS ORDERED: LINAGLIPTIN 5 MG TABLET PO SCH (10:00)
--- NOTE | 2017-08-05 10:03 | DS ---
Date/Time of Note Date/Time of Note DATE: 08/05/17 TIME: 09:58 Discharge Summary Admission/Discharge Info Admit Date/Time Aug 03, 2017 at 20:12 Discharge Date/Time Discharge Diagnosis 1. Diabetic ketoacidosis. 2. Type 2 diabetes mellitus. A1C 10.9. 3. Nicotine use. 4. Obesity. 5. Dyslipidemia. Patient Condition: Stable Consults 1. Kurt Rose MD, Endocrinology. Procedures Gallbladder Ultrasound IMPRESSION: Mild fatty infiltration of the liver. No evidence of gallstones. Hx of Present Illness Chief complaint: Nausea vomiting, abdominal pain This is a 26-year-old female with past medical history of type 2 diabetes diagnosed in 2008, not taking diabetes medications as she ran out of insurance. The patient presented to the emergency department with complaints of dizziness , multiple episodes of nausea and vomiting. She has had 10 episodes of nonbilious and nonbloody emesis. She denied any significant fevers, chills, excessive thirst, excessive urination, or other symptoms. The patient was noticed to have evidence of diabetic ketoacidosis. Allergies: Metformin Medications: None Hospital Course The patient was admitted to intensive care unit. The patient was maintained on an insulin drip. Once the patient's anion gap was closed, the patient was switched to subcutaneous insulin after giving her a single dose of Lantus insulin. The patient was noticed to have a hemoglobin A1c of 10.9. The patient was maintained on sliding scale insulin along with basal insulin and pre -meal insulin with fairly well-controlled blood sugars afterwards. The patient recently lost her health insurance and consequently she ran out of her medications. The patient was seen by the certified diabetes educator and forensics team director. The patient was provided with supplies for Lantus and Apidra insulin along with supplies for insulin pen needles, glucometer, and glucometer supplies. The patient has a history of essential hypertension and as she was on MIKEY inhibitors at one point of time and she was taken off by her primary care physician. The patient's blood pressures were fairly well controlled. The patient was noticed to have obesity with a BMI of 32.7 kg/m. The patient was noticed to have dyslipidemia with elevated triglycerides. The patient was advised to take a low-cholesterol diet. The patient was seen by a registered dietitian. The patient had leukocytosis upon presentation, which has resolved over the course of her hospital stay. The patient had no evidence of any infectious process. The patient was not started on any antibiotics. The patient is a current nicotine user. She was advised on quitting the use of nicotine. The patient had a stable hospital course. The patient was cleared by consultants to be discharged home. Discharge Instructions 1. Take medications as per prescription. 2. Take a carbohydrate controlled, low cholesterol diet. 3. Follow-up with endocrinology [Dr. Rose]. 4. Resume activities as tolerated. 5. Cut down and quit the use of tobacco. The patient verbalized understanding of her discharge instructions. At this time I would like to thank all the consultants for seeing the patient and providing clinical recommendations. Case discussed with Dr. Moeller. Home Meds Active Scripts Insulin Glulisine (Apidra) 100 Units/Ml Soln, 8 UNITS SQ TID, #1 VIAL with meals Prov:LONDON PATRICIA NP 08/05/17 Insulin Glargine* (Lantus*) 100 Unit/Ml Soln, 23 UNIT SC DAILY@08, #1 VIAL Prov:LONDON PATRICIA NP 08/05/17 Follow-up Plan Kurt Rose MD Specialty Endocrinology Office Address [address] [place] [address], [address] [place], [place] [id number] Office Primary Care Provider Not On Staff Doctor Time spent on discharge: 45 minutes Pending Labs Laboratory Tests Test 08/04/17 10:42 08/04/17 11:53 08/04/17 12:01 08/04/17 17:05 Bedside Glucose 164mg/dL (70-220) 188mg/dL (70-220) 226mg/dL (70-220) Sodium Level 141mmol/L (135-144) Potassium Level 3.5mmol/L (3.5-5.1) Chloride Level 109mmol/L (97-110) Carbon Dioxide Level 22mmol/L (21-31) Anion Gap 14 (8-16) Blood Urea Nitrogen 7mg/dl (7-20) Creatinine 0.56mg/dl (0.44-1.00) Glucose Level 191mg/dl (70-220) Calcium Level 8.0mg/dl (8.4-10.2) Test 08/04/17 20:49 08/05/17 01:55 08/05/17 04:58 08/05/17 08:38 Bedside Glucose 199mg/dL (70-220) 173mg/dL (70-220) 219mg/dL (70-220) White Blood Count 9.410^3/ul (4.8-10.8) Red Blood Count 4.6910^6/ul (4.20-5.40) Hemoglobin 13.2g/dl (12.0-16.0) Hematocrit 39.6% (37.0-47.0) Mean Corpuscular Volume 84.4fl (82.0-101.0) Mean Corpuscular Hemoglobin 28.1pg (29.0-33.0) Mean Corpuscular Hemoglobin Concent 33.3g/dl (32.0-37.0) Red Cell Distribution Width 13.2% (11.5-14.5) Platelet Count 59197^3/UL (140-415) Mean Platelet Volume 13.4fl (7.4-10.4) Neutrophils % % (39.0-77.0) Segmented Neutrophils % (Manual) 42% (39-77) Lymphocytes % % (15.0-51.0) Lymphocytes % (Manual) 49% (15-51) Monocytes % % (0.0-11.0) Monocytes % (Manual) 7% (0-11) Eosinophils % % (0.0-7.0) Eosinophils % (Manual) 1% (0-7) Basophils % % (0.0-2.0) Metamyelocytes % (manual) 1% (0-0) Nucleated Red Blood Cells % 0.0/100WBC (0.0-0.0) Neutrophils # 10^3/ul (1.6-7.5) Absolute Lymphocytes (Manual) 4.610^3/ul (0.8-2.9) Lymphocytes # 10^3/ul (0.8-2.9) Monocytes # 10^3/ul (0.3-0.9) Absolute Monocytes (Manual) 0.610^3/ul (0.3-0.9) Eosinophils # 10^3/ul (0.0-0.5) Basophils # 10^3/ul (0.0-0.1) Metamyelocytes # 0.010^3/ul (0.0-0.0) Nucleated Red Blood Cells # 10^3/ul (0.0-0.0) Platelet Estimate NORMAL Giant Platelets 1% (0-0) Anisocytosis 2+ (0-0) Microcytosis 1+ (0-0) Sodium Level 142mmol/L (135-144) Potassium Level 3.7mmol/L (3.5-5.1) Chloride Level 107mmol/L (97-110) Carbon Dioxide Level 24mmol/L (21-31) Anion Gap 15 (8-16) Blood Urea Nitrogen 5mg/dl (7-20) Creatinine 0.61mg/dl (0.44-1.00) Glucose Level 179mg/dl (70-220) Calcium Level 8.4mg/dl (8.4-10.2) Phosphorus Level 3.7mg/dl (2.5-4.9) Magnesium Level 1.6mg/dl (1.7-2.5) Total Bilirubin 0.4mg/dl (0.2-1.3) Direct Bilirubin 0.00mg/dl (0.00-0.20) Indirect Bilirubin 0.4mg/dl (0-1.1) Aspartate Amino Transf (AST/SGOT) 25IU/L (15-46) Alanine Aminotransferase (ALT/SGPT) 41IU/L (13-69) Alkaline Phosphatase 55IU/L (42-121) Total Protein 6.5g/dl (6.1-8.1) Albumin 3.6g/dl (3.3-4.9) Globulin 2.90g/dl (1.3-3.2) Albumin/Globulin Ratio 1.24 LONDON PATRICIA NP Aug 05, 2017 10:02
--- NOTE | 2017-08-05 10:03 | DS ---
Date/Time of Note Date/Time of Note DATE: 08/05/17 TIME: 09:58 Discharge Summary Admission/Discharge Info Admit Date/Time Aug 03, 2017 at 20:12 Discharge Date/Time Discharge Diagnosis 1. Diabetic ketoacidosis. 2. Type 2 diabetes mellitus. A1C 10.9. 3. Nicotine use. 4. Obesity. 5. Dyslipidemia. Patient Condition: Stable Consults 1. Kurt Rose MD, Endocrinology. Procedures Gallbladder Ultrasound IMPRESSION: Mild fatty infiltration of the liver. No evidence of gallstones. Hx of Present Illness Chief complaint: Nausea vomiting, abdominal pain This is a 26-year-old female with past medical history of type 2 diabetes diagnosed in 2008, not taking diabetes medications as she ran out of insurance. The patient presented to the emergency department with complaints of dizziness , multiple episodes of nausea and vomiting. She has had 10 episodes of nonbilious and nonbloody emesis. She denied any significant fevers, chills, excessive thirst, excessive urination, or other symptoms. The patient was noticed to have evidence of diabetic ketoacidosis. Allergies: Metformin Medications: None Hospital Course The patient was admitted to intensive care unit. The patient was maintained on an insulin drip. Once the patient's anion gap was closed, the patient was switched to subcutaneous insulin after giving her a single dose of Lantus insulin. The patient was noticed to have a hemoglobin A1c of 10.9. The patient was maintained on sliding scale insulin along with basal insulin and pre -meal insulin with fairly well-controlled blood sugars afterwards. The patient recently lost her health insurance and consequently she ran out of her medications. The patient was seen by the primary special educator and rotary drum dyer. The patient was provided with supplies for Lantus and Apidra insulin along with supplies for insulin pen needles, glucometer, and glucometer supplies. The patient has a history of essential hypertension and as she was on MIKEY inhibitors at one point of time and she was taken off by her primary care physician. The patient's blood pressures were fairly well controlled. The patient was noticed to have obesity with a BMI of 32.7 kg/m. The patient was noticed to have dyslipidemia with elevated triglycerides. The patient was advised to take a low-cholesterol diet. The patient was seen by a registered dietitian. The patient had leukocytosis upon presentation, which has resolved over the course of her hospital stay. The patient had no evidence of any infectious process. The patient was not started on any antibiotics. The patient is a current nicotine user. She was advised on quitting the use of nicotine. The patient had a stable hospital course. The patient was cleared by consultants to be discharged home. Discharge Instructions 1. Take medications as per prescription. 2. Take a carbohydrate controlled, low cholesterol diet. 3. Follow-up with endocrinology [Dr. Rose]. 4. Resume activities as tolerated. 5. Cut down and quit the use of tobacco. The patient verbalized understanding of her discharge instructions. At this time I would like to thank all the consultants for seeing the patient and providing clinical recommendations. Case discussed with Dr. Moeller. Home Meds Active Scripts Insulin Glulisine (Apidra) 100 Units/Ml Soln, 8 UNITS SQ TID, #1 VIAL with meals Prov:LONDON PATRICIA NP 08/05/17 Insulin Glargine* (Lantus*) 100 Unit/Ml Soln, 23 UNIT SC DAILY@08, #1 VIAL Prov:LONDON PATRICIA NP 08/05/17 Follow-up Plan Kurt Rose MD Specialty Endocrinology Office Address [address] [place] [address], [address] [place], [place] [id number] Office Primary Care Provider Not On Staff Doctor Time spent on discharge: 45 minutes Pending Labs Laboratory Tests Test 08/04/17 10:42 08/04/17 11:53 08/04/17 12:01 08/04/17 17:05 Bedside Glucose 164mg/dL (70-220) 188mg/dL (70-220) 226mg/dL (70-220) Sodium Level 141mmol/L (135-144) Potassium Level 3.5mmol/L (3.5-5.1) Chloride Level 109mmol/L (97-110) Carbon Dioxide Level 22mmol/L (21-31) Anion Gap 14 (8-16) Blood Urea Nitrogen 7mg/dl (7-20) Creatinine 0.56mg/dl (0.44-1.00) Glucose Level 191mg/dl (70-220) Calcium Level 8.0mg/dl (8.4-10.2) Test 08/04/17 20:49 08/05/17 01:55 08/05/17 04:58 08/05/17 08:38 Bedside Glucose 199mg/dL (70-220) 173mg/dL (70-220) 219mg/dL (70-220) White Blood Count 9.410^3/ul (4.8-10.8) Red Blood Count 4.6910^6/ul (4.20-5.40) Hemoglobin 13.2g/dl (12.0-16.0) Hematocrit 39.6% (37.0-47.0) Mean Corpuscular Volume 84.4fl (82.0-101.0) Mean Corpuscular Hemoglobin 28.1pg (29.0-33.0) Mean Corpuscular Hemoglobin Concent 33.3g/dl (32.0-37.0) Red Cell Distribution Width 13.2% (11.5-14.5) Platelet Count 16423^3/UL (140-415) Mean Platelet Volume 13.4fl (7.4-10.4) Neutrophils % % (39.0-77.0) Segmented Neutrophils % (Manual) 42% (39-77) Lymphocytes % % (15.0-51.0) Lymphocytes % (Manual) 49% (15-51) Monocytes % % (0.0-11.0) Monocytes % (Manual) 7% (0-11) Eosinophils % % (0.0-7.0) Eosinophils % (Manual) 1% (0-7) Basophils % % (0.0-2.0) Metamyelocytes % (manual) 1% (0-0) Nucleated Red Blood Cells % 0.0/100WBC (0.0-0.0) Neutrophils # 10^3/ul (1.6-7.5) Absolute Lymphocytes (Manual) 4.610^3/ul (0.8-2.9) Lymphocytes # 10^3/ul (0.8-2.9) Monocytes # 10^3/ul (0.3-0.9) Absolute Monocytes (Manual) 0.610^3/ul (0.3-0.9) Eosinophils # 10^3/ul (0.0-0.5) Basophils # 10^3/ul (0.0-0.1) Metamyelocytes # 0.010^3/ul (0.0-0.0) Nucleated Red Blood Cells # 10^3/ul (0.0-0.0) Platelet Estimate NORMAL Giant Platelets 1% (0-0) Anisocytosis 2+ (0-0) Microcytosis 1+ (0-0) Sodium Level 142mmol/L (135-144) Potassium Level 3.7mmol/L (3.5-5.1) Chloride Level 107mmol/L (97-110) Carbon Dioxide Level 24mmol/L (21-31) Anion Gap 15 (8-16) Blood Urea Nitrogen 5mg/dl (7-20) Creatinine 0.61mg/dl (0.44-1.00) Glucose Level 179mg/dl (70-220) Calcium Level 8.4mg/dl (8.4-10.2) Phosphorus Level 3.7mg/dl (2.5-4.9) Magnesium Level 1.6mg/dl (1.7-2.5) Total Bilirubin 0.4mg/dl (0.2-1.3) Direct Bilirubin 0.00mg/dl (0.00-0.20) Indirect Bilirubin 0.4mg/dl (0-1.1) Aspartate Amino Transf (AST/SGOT) 25IU/L (15-46) Alanine Aminotransferase (ALT/SGPT) 41IU/L (13-69) Alkaline Phosphatase 55IU/L (42-121) Total Protein 6.5g/dl (6.1-8.1) Albumin 3.6g/dl (3.3-4.9) Globulin 2.90g/dl (1.3-3.2) Albumin/Globulin Ratio 1.24 LONDON PATRICIA NP Aug 05, 2017 10:02
--- NOTE | 2017-08-05 10:03 | DS ---
Date/Time of Note Date/Time of Note DATE: 08/05/17 TIME: 09:58 Discharge Summary Admission/Discharge Info Admit Date/Time Aug 03, 2017 at 20:12 Discharge Date/Time Discharge Diagnosis 1. Diabetic ketoacidosis. 2. Type 2 diabetes mellitus. A1C 10.9. 3. Nicotine use. 4. Obesity. 5. Dyslipidemia. Patient Condition: Stable Consults 1. Kurt Rose MD, Endocrinology. Procedures Gallbladder Ultrasound IMPRESSION: Mild fatty infiltration of the liver. No evidence of gallstones. Hx of Present Illness Chief complaint: Nausea vomiting, abdominal pain This is a 26-year-old female with past medical history of type 2 diabetes diagnosed in 2008, not taking diabetes medications as she ran out of insurance. The patient presented to the emergency department with complaints of dizziness , multiple episodes of nausea and vomiting. She has had 10 episodes of nonbilious and nonbloody emesis. She denied any significant fevers, chills, excessive thirst, excessive urination, or other symptoms. The patient was noticed to have evidence of diabetic ketoacidosis. Allergies: Metformin Medications: None Hospital Course The patient was admitted to intensive care unit. The patient was maintained on an insulin drip. Once the patient's anion gap was closed, the patient was switched to subcutaneous insulin after giving her a single dose of Lantus insulin. The patient was noticed to have a hemoglobin A1c of 10.9. The patient was maintained on sliding scale insulin along with basal insulin and pre -meal insulin with fairly well-controlled blood sugars afterwards. The patient recently lost her health insurance and consequently she ran out of her medications. The patient was seen by the critical care educator and lokie driver. The patient was provided with supplies for Lantus and Apidra insulin along with supplies for insulin pen needles, glucometer, and glucometer supplies. The patient has a history of essential hypertension and as she was on MIKEY inhibitors at one point of time and she was taken off by her primary care physician. The patient's blood pressures were fairly well controlled. The patient was noticed to have obesity with a BMI of 32.7 kg/m. The patient was noticed to have dyslipidemia with elevated triglycerides. The patient was advised to take a low-cholesterol diet. The patient was seen by a registered dietitian. The patient had leukocytosis upon presentation, which has resolved over the course of her hospital stay. The patient had no evidence of any infectious process. The patient was not started on any antibiotics. The patient is a current nicotine user. She was advised on quitting the use of nicotine. The patient had a stable hospital course. The patient was cleared by consultants to be discharged home. Discharge Instructions 1. Take medications as per prescription. 2. Take a carbohydrate controlled, low cholesterol diet. 3. Follow-up with endocrinology [Dr. Rose]. 4. Resume activities as tolerated. 5. Cut down and quit the use of tobacco. The patient verbalized understanding of her discharge instructions. At this time I would like to thank all the consultants for seeing the patient and providing clinical recommendations. Case discussed with Dr. Moeller. Home Meds Active Scripts Insulin Glulisine (Apidra) 100 Units/Ml Soln, 8 UNITS SQ TID, #1 VIAL with meals Prov:LONDON PATRICIA NP 08/05/17 Insulin Glargine* (Lantus*) 100 Unit/Ml Soln, 23 UNIT SC DAILY@08, #1 VIAL Prov:LONDON PATRICIA NP 08/05/17 Follow-up Plan Kurt Rose MD Specialty Endocrinology Office Address [address] [place] [address], [address] [place], [place] [id number] Office Primary Care Provider Not On Staff Doctor Time spent on discharge: 45 minutes Pending Labs Laboratory Tests Test 08/04/17 10:42 08/04/17 11:53 08/04/17 12:01 08/04/17 17:05 Bedside Glucose 164mg/dL (70-220) 188mg/dL (70-220) 226mg/dL (70-220) Sodium Level 141mmol/L (135-144) Potassium Level 3.5mmol/L (3.5-5.1) Chloride Level 109mmol/L (97-110) Carbon Dioxide Level 22mmol/L (21-31) Anion Gap 14 (8-16) Blood Urea Nitrogen 7mg/dl (7-20) Creatinine 0.56mg/dl (0.44-1.00) Glucose Level 191mg/dl (70-220) Calcium Level 8.0mg/dl (8.4-10.2) Test 08/04/17 20:49 08/05/17 01:55 08/05/17 04:58 08/05/17 08:38 Bedside Glucose 199mg/dL (70-220) 173mg/dL (70-220) 219mg/dL (70-220) White Blood Count 9.410^3/ul (4.8-10.8) Red Blood Count 4.6910^6/ul (4.20-5.40) Hemoglobin 13.2g/dl (12.0-16.0) Hematocrit 39.6% (37.0-47.0) Mean Corpuscular Volume 84.4fl (82.0-101.0) Mean Corpuscular Hemoglobin 28.1pg (29.0-33.0) Mean Corpuscular Hemoglobin Concent 33.3g/dl (32.0-37.0) Red Cell Distribution Width 13.2% (11.5-14.5) Platelet Count 88464^3/UL (140-415) Mean Platelet Volume 13.4fl (7.4-10.4) Neutrophils % % (39.0-77.0) Segmented Neutrophils % (Manual) 42% (39-77) Lymphocytes % % (15.0-51.0) Lymphocytes % (Manual) 49% (15-51) Monocytes % % (0.0-11.0) Monocytes % (Manual) 7% (0-11) Eosinophils % % (0.0-7.0) Eosinophils % (Manual) 1% (0-7) Basophils % % (0.0-2.0) Metamyelocytes % (manual) 1% (0-0) Nucleated Red Blood Cells % 0.0/100WBC (0.0-0.0) Neutrophils # 10^3/ul (1.6-7.5) Absolute Lymphocytes (Manual) 4.610^3/ul (0.8-2.9) Lymphocytes # 10^3/ul (0.8-2.9) Monocytes # 10^3/ul (0.3-0.9) Absolute Monocytes (Manual) 0.610^3/ul (0.3-0.9) Eosinophils # 10^3/ul (0.0-0.5) Basophils # 10^3/ul (0.0-0.1) Metamyelocytes # 0.010^3/ul (0.0-0.0) Nucleated Red Blood Cells # 10^3/ul (0.0-0.0) Platelet Estimate NORMAL Giant Platelets 1% (0-0) Anisocytosis 2+ (0-0) Microcytosis 1+ (0-0) Sodium Level 142mmol/L (135-144) Potassium Level 3.7mmol/L (3.5-5.1) Chloride Level 107mmol/L (97-110) Carbon Dioxide Level 24mmol/L (21-31) Anion Gap 15 (8-16) Blood Urea Nitrogen 5mg/dl (7-20) Creatinine 0.61mg/dl (0.44-1.00) Glucose Level 179mg/dl (70-220) Calcium Level 8.4mg/dl (8.4-10.2) Phosphorus Level 3.7mg/dl (2.5-4.9) Magnesium Level 1.6mg/dl (1.7-2.5) Total Bilirubin 0.4mg/dl (0.2-1.3) Direct Bilirubin 0.00mg/dl (0.00-0.20) Indirect Bilirubin 0.4mg/dl (0-1.1) Aspartate Amino Transf (AST/SGOT) 25IU/L (15-46) Alanine Aminotransferase (ALT/SGPT) 41IU/L (13-69) Alkaline Phosphatase 55IU/L (42-121) Total Protein 6.5g/dl (6.1-8.1) Albumin 3.6g/dl (3.3-4.9) Globulin 2.90g/dl (1.3-3.2) Albumin/Globulin Ratio 1.24 LONDON PATRICIA NP Aug 05, 2017 10:02
[2017-08-05] MEDS ORDERED: MAGNESIUM SULFATE 2 GM/50 ML 50 ML IVPB ONE (10:30)
--- NOTE | 2017-08-05 11:02 | CONS ---
Date/Time of Note Date/Time of Note DATE: 08/05/17 TIME: 10:56 Assessment/Plan Assessment/Plan Problems: (1) Secondary DM with DKA, uncontrolled Status: Chronic Comment: DKA resolved. Pt. w/ glucose levels still mildly above goal. However , has only just started lantus today. Expect improved control after d/c. Pt. rec'ed supply of insulin to deal w/ financial constraints. Was going to add tradjenta to improve control but should not information security manager way of pt. leaving and she will not be able to afford this med after d/c so should not be continued on it. Consultation Date/Type/Reason Admit Date/Time Aug 03, 2017 at 20:12 Initial Consult Date 08/04/17 Type of Consultation: Endocrinology Reason for Consultation DKA, Diabetes out of control Referring Provider: NABILA LUI MD 24 HR Interval Summary Constitutional: improved, no complaints Detailed Summary Respiratory: no complaints Cardiovascular: no complaints Gastrointestinal: nausea (post-prandial) Genitourinary: no complaints Musculoskeletal: no complaints Neurologic: no complaints Exam/Review of Systems Vital Signs Vitals VS - Last 72 Hours, by Label Date Time Temp Pulse Resp B/P Pulse Ox O2 Delivery O2 Flow Rate FiO2 08/05/17 07:52 98.0 49 17 119/76 96 08/04/17 20:41 98.6 64 18 133/95 97 08/04/17 18:00 79 18 120/87 99 Room Air 08/04/17 17:00 81 18 125/80 99 Room Air 08/04/17 16:00 76 08/04/17 16:00 98.7 58 17 147/91 100 Room Air 08/04/17 15:00 53 18 126/71 98 Room Air 08/04/17 14:00 62 18 132/89 99 Room Air 08/04/17 13:00 80 17 138/98 100 Room Air 08/04/17 12:00 62 08/04/17 12:00 98.0 66 18 121/81 96 Room Air 08/04/17 12:00 65 08/04/17 11:00 80 18 130/84 100 Room Air 08/04/17 10:00 75 19 119/81 100 Room Air 08/04/17 09:00 71 20 134/104 98 Room Air 08/04/17 08:00 73 08/04/17 08:00 98.1 75 18 113/70 96 Room Air 08/04/17 07:00 79 20 125/82 96 Room Air 08/04/17 05:30 85 20 102/74 97 08/04/17 05:00 88 20 117/83 96 08/04/17 04:30 90 20 119/83 96 08/04/17 04:00 81 08/04/17 02:30 83 20 109/66 98 Room Air 08/04/17 02:00 76 20 113/80 99 Room Air 08/04/17 01:30 80 20 108/79 99 Room Air 08/04/17 01:00 90 32 125/75 100 Room Air 08/04/17 00:25 18 141/92 97 Room Air 08/04/17 00:00 97.9 81 18 94 Room Air 08/04/17 00:00 68 08/03/17 22:21 99.2 62 20 115/81 100 Nasal Cannula 2.0 08/03/17 22:00 99.2 60 19 102/82 100 Nasal Cannula 2.0 08/03/17 19:55 99.2 60 20 138/76 97 Room Air 08/03/17 17:14 98.5 89 22 142/108 100 Vital Signs Date Time Temp Pulse Resp B/P Pulse Ox O2 Delivery O2 Flow Rate FiO2 08/05/17 07:52 98.0 49 17 119/76 96 08/04/17 18:00 Room Air 08/03/17 22:21 2.0 Intake and Output 08/04/17 08/04/17 08/05/17 15:00 23:00 07:00 Intake Total 1713 ml 150 ml 900 ml Output Total 850 ml Balance 1713 ml 150 ml 50 ml Exam Constitutional: alert, obese, oriented Psych: nl mood/affect, no complaints Respiratory: clear to auscultation, normal air movement Cardiovascular: nl pulses, regular rate and rhythm, No edema, No murmurs/extra sounds, No rub Gastrointestinal: bowel sounds, nl liver, spleen, soft, tender (epigastrium), No mass, No non-tender, No rebound or guarding Musculoskeletal: nl extremities to inspection, nl gait and stance Extremities: normal pulses, No clubbing, No cyanosis, No edema Neurological: DIRECTOR CLINICAL DATA II-XII intact, nl mental status, nl speech, nl strength Additional Comments Bedside Glucose - 72 Hours Test 08/03/17 17:31 08/03/17 21:51 08/03/17 22:37 08/03/17 23:26 Bedside Glucose 290mg/dL (70-220) H 246mg/dL (70-220) H 208mg/dL (70-220) 178mg/dL (70-220) Test 08/03/17 23:55 08/04/17 01:30 08/04/17 02:48 08/04/17 03:42 Bedside Glucose 194mg/dL (70-220) 229mg/dL (70-220) H 244mg/dL (70-220) H 209mg/dL (70-220) Test 08/04/17 04:32 08/04/17 05:32 08/04/17 06:22 08/04/17 08:16 Bedside Glucose 190mg/dL (70-220) 172mg/dL (70-220) 141mg/dL (70-220) 177mg/dL (70-220) Test 08/04/17 09:00 08/04/17 10:42 08/04/17 11:53 08/04/17 17:05 Bedside Glucose 172mg/dL (70-220) 164mg/dL (70-220) 188mg/dL (70-220) 226mg/dL (70-220) H Test 08/04/17 20:49 08/05/17 01:55 08/05/17 08:38 Bedside Glucose 199mg/dL (70-220) 173mg/dL (70-220) 219mg/dL (70-220) Results Result Diagram: 08/05/17 0458 08/05/17 0458 Results 24 hrs Laboratory Tests Test 08/04/17 11:53 08/04/17 12:01 08/04/17 17:05 08/04/17 20:49 Bedside Glucose 188 226 H 199 Sodium Level 141 Potassium Level 3.5 Chloride Level 109 Carbon Dioxide Level 22 Anion Gap 14 Blood Urea Nitrogen 7 Creatinine 0.56 Glucose Level 191 Calcium Level 8.0 L Test 08/05/17 01:55 08/05/17 04:58 08/05/17 08:38 Bedside Glucose 173 219 White Blood Count 9.4 # Red Blood Count 4.69 Hemoglobin 13.2 Hematocrit 39.6 Mean Corpuscular Volume 84.4 Mean Corpuscular Hemoglobin 28.1 L Mean Corpuscular Hemoglobin Concent 33.3 Red Cell Distribution Width 13.2 Platelet Count 158 Mean Platelet Volume 13.4 H Neutrophils % Segmented Neutrophils % (Manual) 42 Lymphocytes % Lymphocytes % (Manual) 49 Monocytes % Monocytes % (Manual) 7 Eosinophils % Eosinophils % (Manual) 1 Basophils % Metamyelocytes % (manual) 1 H Nucleated Red Blood Cells % 0.0 Neutrophils # Absolute Lymphocytes (Manual) 4.6 H Lymphocytes # Monocytes # Absolute Monocytes (Manual) 0.6 Eosinophils # Basophils # Metamyelocytes # 0.0 Nucleated Red Blood Cells # Platelet Estimate NORMAL Giant Platelets 1 H Anisocytosis 2+ Microcytosis 1+ Sodium Level 142 Potassium Level 3.7 Chloride Level 107 Carbon Dioxide Level 24 Anion Gap 15 Blood Urea Nitrogen 5 L Creatinine 0.61 Glucose Level 179 Calcium Level 8.4 Phosphorus Level 3.7 Magnesium Level 1.6 L Total Bilirubin 0.4 Direct Bilirubin 0.00 Indirect Bilirubin 0.4 Aspartate Amino Transf (AST/SGOT) 25 Alanine Aminotransferase (ALT/SGPT) 41 Alkaline Phosphatase 55 Total Protein 6.5 # Albumin 3.6 # Globulin 2.90 Albumin/Globulin Ratio 1.24 Medications Medications Current Medications Ondansetron HCl (Zofran Inj) 4 mg Q6H PRN IV NAUSEA AND/OR VOMITING Last administered on 08/04/17 17:14; Admin Dose 4 MG; Start 08/03/17 at 20:30 Metoclopramide HCl (Reglan) 10 mg Q6H PRN IV NAUSEA AND/OR VOMITING Last administered on 08/04/17 01:10; Admin Dose 10 MG; Start 08/03/17 at 20:30 Acetaminophen (Tylenol Liquid) 650 mg Q6H PRN PO PAIN LEVEL 1-3 OR FEVER; Start 08/03/17 at 20:30 Insulin Glargine (Lantus) 23 unit DAILY@08 SC Last administered on 08/05/17 09 :08; Admin Dose 23 UNIT; Start 08/05/17 at 08:00 Diagnostic Test (Pha) (Accu-Chek) 1 ea 02 XX ; Start 08/05/17 at 02:00 Miscellaneous Information 1 ea NOTE XX ; Start 08/04/17 at 09:30 Glucose (Glutose) 15 gm Q15M PRN PO DECREASED GLUCOSE; Start 08/04/17 at 09:30 Glucose (Glutose) 22.5 gm Q15M PRN PO DECREASED GLUCOSE; Start 08/04/17 at 09: 30 Dextrose (D50w Syringe) 25 ml Q15M PRN IV DECREASED GLUCOSE; Start 08/04/17 at 09:30 Dextrose (D50w Syringe) 50 ml Q15M PRN IV DECREASED GLUCOSE; Start 08/04/17 at 09:30 Glucagon (Glucagen) 1 mg Q15M PRN IM DECREASED GLUCOSE; Start 08/04/17 at 09:30 Glucose 15 gm 15 gm Q15M PRN BUCCAL DECREASED GLUCOSE; Start 08/04/17 at 09:30 Magnesium Sulfate (Magnesium Sulfate 2 Gm/50 ml) 50 ml @ 25 mls/hr ONCE ONCE IVPB ; Start 08/05/17 at 10:30; Stop 08/05/17 at 12:29 Linagliptin (Tradjenta) 5 mg DAILY PO ; Start 08/05/17 at 10:00 HARISH NEVAREZ MD Aug 05, 2017 11:02
[2017-08-05] MEDS: ONDANSETRON 4 MG INJ IV PRN (11:09)
[2017-08-05 14:23] VITALS: BP 136/89; RESP 17
== END 2017-08-05 15:55 | disposition home or self-care (01) | DRG 639 ==
LOC: FTE 17:12 → UNDOADMIN 20:12 → ICU 20:12 → MS1 08-04 18:30
PROVIDERS: ADMIT Family Medicine; ATTEND Family Medicine
DX: E11.10 Type 2 diabetes mellitus with ketoacidosis without coma (principal); I10 Essential (primary) hypertension; F17.210 Nicotine dependence, cigarettes, uncomplicated; E86.0 Dehydration; E66.9 Obesity, unspecified; Z68.32 Body mass index [BMI] 32.0-32.9, adult; E78.5 Hyperlipidemia, unspecified; Z79.4 Long term (current) use of insulin; Z79.84 Long term (current) use of oral hypoglycemic drugs; Z91.14 Patient's other noncompliance with medication regimen
CPT/HCPCS: 36415; 76705; 80048; 80053; 80061; 81001; 82962; 83036; 83690; 83735; 84100; 85025; 85610; 85730; 87081; 96374; 96375; 96376; C9113; J1815; J2270; J2405; J2765; J3475; J3480; J7030; J7120

== ENCOUNTER 2017-12-11 16:13 | Emergency (ER) | END 2017-12-11 21:30 | disposition home or self-care (01) ==

== ENCOUNTER 2017-12-12 17:37 | Inpatient (IN) | END 2017-12-15 13:38 | disposition left against medical advice (07) | DRG 639 ==

== ENCOUNTER 2019-01-24 07:22 | Emergency (ER) | payer OTHER ==
[~2019-01-24] VITALS: Ht 152.4 cm; Wt 100.5 kg
[~2019-01-24 07:22] MED LIST: LANT3I SC; ONDA4TAB13 PO
[2019-01-24 07:31] VITALS: Ht 152.4 cm; Wt 100.5 kg
[2019-01-24] MEDS ORDERED: ONDANSETRON 4 MG INJ IV STA (08:23)
[2019-01-24] MEDS ORDERED: SOD CHLORIDE 0.9% 1,000 ML IV ONE (08:30)
[2019-01-24] MEDS ORDERED: LORAZEPAM 2 MG INJ IV ONE (10:00)
--- NOTE | 2019-01-24 11:03 | ERD ---
ER Documentation Chief Complaint Chief Complaint nausea,vomiting,diarrhea x 4 days.denies pain.BS 232 at triage HPI 28-year-old female patient with a past medical history of diabetes presents to the ED complaining of nausea, vomiting, diarrhea that started 4 days ago. Denies any chest pain, shortness breath, nausea, vomiting, diarrhea. Reports she has some mid abdominal pain associated with vomiting and diarrhea. ROS All systems reviewed and are negative except as per history of present illness. Medications Home Meds Active Scripts Ondansetron Hcl* (Zofran*) 4 Mg Tab, 4 MG PO Q4H PRN for NAUSEA AND OR VOMITING, #30 TAB Prov:PATTIERBELLA 12/14/17 Insulin Glargine* (Lantus*) 100 Unit/Ml Soln, 20 UNIT SC QHS for 30 Days Prov:REGIDORBELLA 12/14/17 Allergies Allergies: Coded Allergies: Milk Containing Products (Verified Allergy, Intermediate, 01/24/19) metformin (Unverified Allergy, Unknown, 01/24/19) PMhx/Soc History of Surgery: No Anesthesia Reaction: No Hx Neurological Disorder: No Hx Respiratory Disorders: No Hx Cardiac Disorders: No Hx Psychiatric Problems: No Hx Miscellaneous Medical Probl: No Hx Alcohol Use: Yes (social) Hx Substance Use: No Hx Tobacco Use: Yes Smoking Status: Current every day smoker FmHx Family History: No diabetes, No coronary disease Physical Exam Vitals Vital Signs Date Temp Pulse Resp B/P (MAP) Pulse Ox O2 O2 Flow FiO2 Time Delivery Rate 01/24/19 98.2 70 18 135/83 97 07:31 (100) Physical Exam Const: [id number], well-nourished. In no acute distress. Head: Atraumatic, normocephalic Eyes: Normal Conjunctiva without injection. No purulent discharge. ENT: Normal external ear, nose. Moist oropharynx without tonsillar exudates. Non-erythematous pharynx. Uvula midline. No drooling. No trismus. Neck: No cervical midline tenderness. Full range of motion. No meningismus. No cervical lymphadenopathy. No JVD. Resp: Clear to auscultation bilaterally. No wheezing, rhonchi, rales, or crackl es. No accessory muscle use. No retractions. Cardio: Regular rate and rhythm. No murmurs, rubs or gallops. Abd: Soft, nontender, non distended. Normal bowel sounds. No palpable masses. No rebound tenderness. No guarding. Negative McBurney's point. Negative psoas sign. Negative obturator sign. Skin: No petechiae or rashes Back: No midline tenderness. No CVA tenderness. Ext: No cyanosis, or edema. Neur: Awake and alert. Normal gait. Normal coordination. Psych: Normal Mood and Affect Result Diagram: 01/24/19 0829 01/24/19 0829 Results 24 hrs Laboratory Tests Test 01/24/19 07:35 01/24/19 08:29 01/24/19 10:04 Bedside Glucose 232 mg/dL 228 mg/dL White Blood Count 10.7 10^3/ul Red Blood Count 5.34 10^6/ul Hemoglobin 14.8 g/dl Hematocrit 44.0 % Mean Corpuscular Volume 82.4 fl Mean Corpuscular Hemoglobin 27.7 pg Mean Corpuscular 33.6 g/dl Hemoglobin Concent Red Cell Distribution Width 12.7 % Platelet Count 193 10^3/UL Mean Platelet Volume 12.6 fl Immature Granulocytes % 0.300 % Neutrophils % 63.8 % Lymphocytes % 28.3 % Monocytes % 6.0 % Eosinophils % 1.3 % Basophils % 0.3 % Nucleated Red Blood Cells % 0.0 /100WBC Immature Granulocytes # 0.030 10^3/ul Neutrophils # 6.8 10^3/ul Lymphocytes # 3.0 10^3/ul Monocytes # 0.6 10^3/ul Eosinophils # 0.1 10^3/ul Basophils # 0.0 10^3/ul Nucleated Red Blood Cells # 0.0 10^3/ul Urine Color STRAW Urine Clarity CLEAR Urine pH 5.0 Urine Specific Edroy 1.012 Urine Ketones TRACE mg/dL Urine Nitrite NEGATIVE mg/dL Urine Bilirubin NEGATIVE mg/dL Urine Urobilinogen NEGATIVE mg/dL Urine Leukocyte Esterase NEGATIVE Tal/ul Urine Hemoglobin NEGATIVE mg/dL Urine Glucose NEGATIVE mg/dL Urine Total Protein NEGATIVE mg/dl Sodium Level 143 mmol/L Potassium Level 4.3 mmol/L Chloride Level 109 mmol/L Carbon Dioxide Level 23 mmol/L Anion Gap 11 Blood Urea Nitrogen 11 mg/dl Creatinine 0.57 mg/dl Est Glomerular Filtrat > 60 mL/min Rate mL/min Glucose Level 238 mg/dl Calcium Level 10.0 mg/dl Total Bilirubin 0.1 mg/dl Direct Bilirubin 0.00 mg/dl Indirect Bilirubin 0.1 mg/dl Aspartate Amino Transf (AST/SGOT) 21 IU/L Alanine 34 IU/L Aminotransferase (ALT/SGPT) Alkaline Phosphatase 81 IU/L Total Protein 7.7 g/dl Albumin 4.2 g/dl Globulin 3.50 g/dl Albumin/Globulin Ratio 1.20 Lipase 131 U/L Serum HCG, Qualitative NEGATIVE Current Medications Medications Dose Sig/Meredith Start Time Status Last (Trade) Ordered Route PRN Stop Time Admin Dose Reason Admin Ondansetron 4 mg ONCE STAT 01/24/19 DC 01/24/19 HCl (Zofran IV 08:23 08:42 Inj) 01/24/19 08:26 Sodium 1,000 ml @ Q1H ONCE 01/24/19 DC 01/24/19 Chloride 1,000 mls/hr IV 08:30 08:42 01/24/19 09:29 Lorazepam 1 mg ONCE ONCE 01/24/19 DC 01/24/19 (Ativan) IV 10:00 09:46 01/24/19 10:01 Procedures/MDM 28-year-old female patient with a past medical history of diabetes presents the ED complaining of vomiting and diarrhea that started 4 days ago. Patient is afebrile and nontoxic-appearing. Patient was further worked up with CBC, CMP, lipase, UA, . Patient's pain and symptoms have improved after treatment with 4 mg IV Zofran, 1 mg IV Ativan. CBC: No leukocytosis. No e/o of systemic infection. No e/o anemia. CMP: No e/o severe acidosis, alkalosis, renal failure, diabetic ketoacidosis, liver disease Lipase within normal limits. Urine: No leukocyte esterase, no nitrites, no hematuria. Urine : Negative Differentials include viral gastroenteritis, cannabinoid hyperemesis syndrome since patient does smoke marijuana, self-inflicted vomiting - bulimia. Upon discharge patient was seen to have skin erosion of her right index finger. Low suspicion for ectopic , ovarian torsion, gastritis, GERD, peptic ulcer disease, cholecystitis, choledocholithiasis, cholangitis, pancreatitis, appendicitis, bowel obstruction, ileus, volvulus, nephrolithiasis, pyelonephritis, hepatitis, perforated viscus, diverticulitis, strangulated/incarcerated hernia, DKA, acute abdomen, mesenteric ischemia or other emergent conditions. Diagnosis: Vomiting and Diarrhea Follow up with primary care physician in 1-2 days. Instructed patient to return to the ED sooner for any worsening symptoms. Patient's questions were answered. Patient is hemodynamically stable. Patient understood and agreed with discharge plan. Patient discharged stable. Disclaimer: Inadvertent spelling and grammatical errors are likely due to EHR/dictation software use and do not reflect on the overall quality of patient care. Also, please note that the electronic time recorded on this note does not necessarily reflect the actual time of the patient encounter. Departure Diagnosis: Primary Impression: Vomiting and diarrhea Condition: Stable Patient Instructions: Hyperglycemia (High Blood Sugar), Self-Care for Vomiting and Diarrhea, Vomiting And Diarrhea, Nonspecific (Adult) Referrals: [facility] YOU HAVE RECEIVED A MEDICAL SCREENING EXAM AND THE RESULTS INDICATE THAT YOU DO NOT HAVE A CONDITION THAT REQUIRES URGENT TREATMENT IN THE EMERGENCY DEPARTMENT. FURTHER EVALUATION AND TREATMENT OF YOUR CONDITION CAN WAIT UNTIL YOU ARE SEEN IN YOUR DOCTORS OFFICE WITHIN THE NEXT 1-2 DAYS. IT IS YOUR RESPONSIBILITY TO MAKE AN APPOINTMENT FOR FOLOW-UP CARE. IF YOU HAVE A PRIMARY DOCTOR --you should call your primary doctor and schedule an appointment IF YOU DO NOT HAVE A PRIMARY DOCTOR YOU CAN CALL OUR PHYSICIAN REFERRAL HOTLINE AT IF YOU CAN NOT AFFORD TO SEE A PHYSICIAN YOU CAN CHOSE FROM THE FOLLOWING [facility] [address] [facility]. [facility] [address] [facility] [facility] [address] [facility] [facility] [address] [facility] [facility] [address] [facility]. [facility]. [address] [facility]. [facility] YOU HAVE RECEIVED A MEDICAL SCREENING EXAM AND THE RESULTS INDICATE THAT YOU DO NOT HAVE A CONDITION THAT REQUIRES URGENT TREATMENT IN THE EMERGENCY DEPARTMENT. FURTHER EVALUATION AND TREATMENT OF YOUR CONDITION CAN WAIT UNTIL YOU ARE SEEN IN YOUR DOCTORS OFFICE WITHIN THE NEXT 1-2 DAYS. IT IS YOUR RESPONSIBILITY TO MAKE AN APPOINTMENT FOR FOLOW-UP CARE. IF YOU HAVE A PRIMARY DOCTOR --you should call your primary doctor and schedule and appointment IF YOU DO NOT HAVE A PRIMARY DOCTOR YOU CAN CALL OUR PHYSICIAN REFERRAL HOTLINE AT . IF YOU CAN NOT AFFORD TO SEE A PHYSICIAN YOU CAN CHOSE FROM THE FOLLOWING [facility] INSTITUTIONS: [facility] [address] [place] [address] [facility] [address] [place], [place] [id number] [place] [address] [address] [place] [address] [facility] Additional Instructions: Follow up with your family doctor at your appointment today at 2PM for an appointment with a keyboard operator.See the doctor sooner or return here if your condition worsens before your appointment time. GAYLE ROSAS PA-C Jan 24, 2019 11:02
[2019-01-24] MEDS ORDERED: METO10TA92 PO (11:29)
[2019-01-24 11:42] VITALS: BP 150/80; PULSE 60; RESP 18
== END 2019-01-24 11:44 | disposition home or self-care (01) ==
LOC: FTE 07:22
DX: R11.2 Nausea with vomiting, unspecified (principal); E11.9 Type 2 diabetes mellitus without complications; R19.7 Diarrhea, unspecified; F17.210 Nicotine dependence, cigarettes, uncomplicated; Z79.4 Long term (current) use of insulin
CPT/HCPCS: 80053; 81003; 82962; 83690; 84703; 85025; J2060; J2405; J7030; 36415; 96361; 96374; 96375

== ENCOUNTER 2019-02-26 13:21 | Inpatient (IN) | payer OTHER ==
[~2019-02-26] VITALS: Ht 165.1 cm; Wt 100.0 kg
[~2019-02-26 13:21] MED LIST changes: +METO10TA92 PO
[2019-02-26] MEDS ORDERED: ONDANSETRON 4 MG INJ ONE (13:56)
[2019-02-26] MEDS ORDERED: ONDANSETRON 4 MG INJ IV STA (13:58)
[2019-02-26] MEDS ORDERED: SOD CHLORIDE 0.9% 1,000 ML IV ONE (14:00)
[2019-02-26] MEDS ORDERED: CEFTRIAXONE 1 GM/50 ML (PMX) 50 ML IVPB STA (14:22)
[2019-02-26] MEDS ORDERED: SERT-165 PO (14:25)
[2019-02-26] MEDS ORDERED: ONDA4TAB13 PO (14:26)
[2019-02-26] MEDS ORDERED: LORA0.5T PO (14:26)
[2019-02-26] MEDS ORDERED: INSU100I33 SC (14:27)
[2019-02-26] MEDS ORDERED: NOVO3I SC (14:27)
[2019-02-26] MEDS ORDERED: LACT10SO5 PO (14:29)
[2019-02-26] MEDS ORDERED: LORAZEPAM 2 MG INJ IV ONE (14:30)
[2019-02-26] MEDS ORDERED: SOD CHLORIDE 0.9% 1,000 ML IV SCH (15:40)
[2019-02-26] MEDS ORDERED: NS + KCL 40 MEQ 1,000 ML IV SCH (15:40)
[2019-02-26] MEDS ORDERED: DEXTROSE 10%/0.45% NACL 1,000 ML IV SCH (15:40)
[2019-02-26] MEDS ORDERED: D10/0.45% NACL + KCL 30 MEQ 1,000 ML IV SCH (15:40)
[2019-02-26] MEDS ORDERED: NS + KCL 30 MEQ 1,000 ML IV SCH (15:40)
[2019-02-26] MEDS ORDERED: D10/0.45% NACL + KCL 40 MEQ 1,000 ML IV SCH (15:40)
[2019-02-26] MEDS ORDERED: INSULIN REGULAR, HUMAN 100 UNIT in SOD CHLORIDE 0.9% 100 ML IV SCH ×2 (16:00)
[2019-02-26] MEDS ORDERED: LACTATED RINGER'S 1,000 ML IV ONE (16:00)
[2019-02-26] MEDS ORDERED: DEXTROSE 50% 50 ML SYRINGE IV PRN ×4 (16:00→19:00)
[2019-02-26] MEDS ORDERED: MAGNESIUM SULFATE 2 GM/50 ML 50 ML IVPB ONE (17:30)
[2019-02-26] MEDS ORDERED: ONDANSETRON 4 MG INJ IV PRN (17:30)
[2019-02-26] MEDS ORDERED: DOCUSATE SODIUM 100 MG CAP PO PRN (17:30)
[2019-02-26] MEDS ORDERED: METOCLOPRAMIDE 10 MG INJ IV PRN (17:30)
[2019-02-26] MEDS ORDERED: ACETAMINOPHEN 325 MG TAB PO PRN (17:30)
[2019-02-26] MEDS ORDERED: LORAZEPAM 2 MG INJ IV PRN (17:30)
[2019-02-26] MEDS ORDERED: MAGNESIUM HYDROXIDE 30ML CUP PO PRN (17:30)
[2019-02-26] MEDS: INSULIN ASPART [NOVOLOG] 3 ML PEN SC SCH ×2 (18:00→20:58)
--- NOTE | 2019-02-26 18:11 | HP ---
Date/Time of Note Date/Time of Note DATE: 02/26/19 TIME: 17:45 Assessment/Plan VTE Prophylaxis SCD applied (from Nsg): Yes Pharmacological prophylaxis: NA/contraindicated Pharm contraindication: low risk/ambulating Lines/Catheters IV Catheter Type (from Nrsg): Saline Lock Assessment/Plan Assessment/Plan 1. Mild Diabetic Ketoacidosis - Latest BMP shows closed gap and patient never started on Insulin drip - will d/c DKA protocol and admit to telemetry 2. Nausea with vomiting - unsure etiology - will give supportive care - not in DKA currently - clear diet - Zofran and Reglan PRN 3. Diabetes Mellitus with hyperglycemia - A1c noted - will start Lantus but at 15 units until able to tolerate more PO intake. Home dose 30units - ISS and accuchecks 4. Electrolyte derangement - replacing and continue to monitor - no cardiac issues noted 5. lactic acidosis - most likely secondary to dehydration - continue IVF and trend 6. Acute dehydration secondary to #2 - LR on board 7. Diet - Clear and advance as tolerated 8. Code status - Full 9. Disposition - Admit to telemetry for treatment of acute dehydration, hyperglycemia, and N/V Result Diagram: 02/26/19 1355 02/26/19 1629 Results 24hrs Laboratory Tests Test 02/26/19 13:40 02/26/19 13:44 02/26/19 13:55 02/26/19 14:14 Blood Gas Blood venous Specimen Source Arterial Blood 02/26/2019 2:55: Date Drawn 04 PM Arterial Blood VENOUS LINE Gas Puncture Site Frantz Test N/A Venous Blood pH 7.478 H Venous Blood 25.2 L pCO2 (Temp Corrected) Venous Blood pO2 67.0 H (Temp Corrected) Venous Blood 18.3 L HCO3 Venous Blood 94.3 H Oxygen Saturation Venous Blood -3.4 Base Excess Venous Blood 14.5 Total Hemoglobin Venous Blood 93.8 Oxyhemoglobin Venous Blood 0.1 Methemoglobin Carboxyhemoglobi 0.4 n Blood Gas 37.0 Temperature Blood Gas ROOM AIR Modality FiO2 21.0 Blood Gas M.D. Notified Whom Blood Gas 02/26/2019 3:03: Notified Time 56 PM Bedside Glucose 260 H White Blood 18.8 #H Count Red Blood Count 5.59 H Hemoglobin 15.5 Hematocrit 45.1 Mean Corpuscular 80.7 L Volume Mean Corpuscular 27.7 L Hemoglobin Mean Corpuscular 34.4 Hemoglobin Ashley nt Red Cell 12.4 Distribution Width Platelet Count 254 # Mean Platelet 12.4 H Volume Immature 0.500 H Granulocytes % Neutrophils % 76.5 Lymphocytes % 18.0 Monocytes % 4.1 Eosinophils % 0.5 Basophils % 0.4 Nucleated Red 0.0 Blood Cells % Immature 0.090 H Granulocytes # Neutrophils # 14.4 H Lymphocytes # 3.4 H Monocytes # 0.8 Eosinophils # 0.1 Basophils # 0.1 Nucleated Red 0.0 Blood Cells # Sodium Level 139 Potassium Level 3.7 Chloride Level 106 Carbon Dioxide 19 L Level Anion Gap 14 H Blood Urea 14 Nitrogen Creatinine 0.58 Est Glomerular > 60 Filtrat Rate mL/min Glucose Level 243 H Hemoglobin A1c 7.7 H Calcium Level 9.9 Phosphorus Level 1.0 L Magnesium Level 1.5 L Total Bilirubin 0.5 Direct Bilirubin 0.00 Indirect 0.5 Bilirubin Aspartate Amino 22 Transf (AST/SGOT ) Alanine 21 Aminotransferase (ALT/SGPT) Alkaline 119 Phosphatase Total Protein 8.5 H Albumin 4.6 Globulin 3.90 H Albumin/Globulin 1.17 Ratio Serum HCG, NEGATIVE Qualitative POC Venous 2.8 *H Lactate Test 02/26/19 14:21 02/26/19 15:55 02/26/19 16:24 02/26/19 16:29 POC Venous 2.6 *H Lactate Urine Color YELLOW Urine Clarity SLIGHTLY CLOUDY A Urine pH 7.0 Urine Specific 1.021 [place] Urine Ketones 2+ H Urine Nitrite NEGATIVE Urine Bilirubin NEGATIVE Urine NEGATIVE Urobilinogen Urine Leukocyte NEGATIVE Esterase Urine 0 Microscopic RBC Urine 1 Microscopic WBC Urine Squamous MODERATE Epithelial Cells Urine Mucus FEW A Urine Hemoglobin NEGATIVE Urine Glucose 3+ H Urine Total NEGATIVE Protein Bedside Glucose 228 H Sodium Level 139 Potassium Level 4.0 Chloride Level 107 Carbon Dioxide 19 L Level Anion Gap 13 Blood Urea 12 Nitrogen Creatinine 0.52 Est Glomerular > 60 Filtrat Rate mL/min Glucose Level 257 H Lactic Acid 3.2 *H Level Calcium Level 9.0 Phosphorus Level 1.5 L Magnesium Level 1.4 L HPI/ROS Admit Date/Time Admit Date/Time 02/26/19 Hx of Present Illness 28 yo F with PMH Diabetes presented to ED after experiencing persistent nausea with vomiting. Patient states she has been in her normal state of health and went to work this am at 8am. Around 10 am she started experiencing nausea with vomiting. Denies any fevers, chills, dizziness, chest pain, shortness of breath , abdominal pain, or urinary issues. She denies any recent travel or sick contact. She was admitted to [facility] a couple months ago for similar symptoms but unsure what she was diagnosed with. She admits to being compliant with medications. Patient last vomited a couple minutes prior to interview and describes as nonblood, bilious emesis. ROS All 12 systems reviewed and pertinent positives as per HPI. All others negative. Constitutional: diaphoresis, nausea; No febrile Eyes: No discharge ENT: No congestion Respiratory: No cough, No shortness of breath, No sputum, No wheezing Cardiovascular: No chest pain, No lightheadedness, No palpitations Gastrointestinal: nausea, vomiting; No pain, No constipation, No diarrhea Genitourinary: no complaints Musculoskeletal: no complaints Skin: No rash Neurologic: No confusion, No focal-weakness, No syncope Endocrine: no complaints Lymphatic: no complaints Psychological: nl mood/affect Immunologic: no complaints PMH/Family/Social Past Medical History Medical History: diabetes Medications Current Medications Potassium Chloride/Sodium Chloride 1,000 ml @ 0 mls/hr Q0M IV ; Start 02/26/19 at 15:40 Potassium Chloride/Dextrose/ Sod Cl 1,000 ml @ 0 mls/hr Q0M IV ; Start 02/26/19 at 15:40 Potassium Chloride/Sodium Chloride 1,000 ml @ 0 mls/hr Q0M IV ; Start 02/26/19 at 15:40 Potassium Chloride/Dextrose/ Sod Cl 1,000 ml @ 0 mls/hr Q0M IV ; Start 02/26/19 at 15:40 Sodium Chloride 1,000 ml @ 0 mls/hr Q0M IV ; Start 02/26/19 at 15:40 Dextrose/Sodium Chloride 1,000 ml @ 0 mls/hr Q0M IV ; Start 02/26/19 at 15:40 Insulin Human Regular 100 unit/ Sodium Chloride 101 ml @ 10.1 mls/hr ER DKA PROTOCOL IV ; Start 02/26/19 at 16:00 Miscellaneous Information (* Miscellaneous Pharmacy Order) HYPOGLYCEMIA NIHARIKA TMENT HYPOGLYCEM PROTOCOL PRN XX .HYPOGLYCEMIA PROTOCOL; Start 02/26/19 at 16:00 Dextrose (D50w Syringe) 50 ml Q15M PRN IV .DECREASED GLUCOSE; Start 02/26/19 at 16:00 Dextrose (D50w Syringe) 25 ml Q15M PRN IV .DECREASED GLUCOSE; Start 02/26/19 at 16:00 Sertraline HCl (Zoloft) 100 mg DAILY PO ; Start 02/27/19 at 09:00; Status UNV Lorazepam (Ativan) 1 mg Q4 PRN IV anxiety; Start 02/26/19 at 17:30; Status UNV Ondansetron HCl (Zofran Inj) 4 mg Q6H PRN IV NAUSEA AND/OR VOMITING; Start 02/26/19 at 17:30; Status UNV Metoclopramide HCl (Reglan) 10 mg Q6H PRN IV NAUSEA AND/OR VOMITING; Start at 17:30; Status UNV Acetaminophen (Tylenol Tab) 650 mg Q6H PRN PO PAIN LEVEL 1-3 OR FEVER; Start 02/26/19 at 17:30; Status UNV Docusate Sodium (Colace) 100 mg Q12H PRN PO CONSTIPATION; Start 02/26/19 at 17:30; Status UNV Magnesium Hydroxide (Milk Of Mag) 30 ml DAILY PRN PO CONSTIPATION; Start 02/26/19 at 17:30; Status UNV Famotidine (Pepcid Iv) 20 mg Q12 IV ; Start 02/26/19 at 21:00; Status UNV Magnesium Sulfate 50 ml @ 25 mls/hr ONCE ONCE IVPB ; Start 02/26/19 at 17:30; Stop 02/26/19 at 19:29; Status UNV Coded Allergies: Milk Containing Products (Verified Allergy, Intermediate, 02/26/19) metformin (Unverified Allergy, Unknown, 02/26/19) Past Surgical History Past Surgical Hx: no surgical history Family History Significant Family History: no pertinent family hx, other Social History Alcohol Use: none Smoking Status: Current every day smoker Drug Use: none Exam/Review of Systems Vital Signs Vitals Vital Signs Date Temp Pulse Resp B/P (MAP) Pulse Ox O2 O2 Flow FiO2 Time Delivery Rate 02/26/19 72 18 122/65 100 Room Air 17:15 (84) 02/26/19 98.1 13:26 Exam Exam General: Patient in distress secondary to nausea, answering questions appropriately, fatigued HEENT: Atraumatic, normocephalic. The pupils are equal, round and reactive. Extraocular motor are intact Neck: Supple with full range of motion. No rigidity or meningismus Chest: Nontender Lungs: Clear to auscultation bilaterally, no wheezing or rhonchi Heart: Normal S1-S2, Regular rhythm and rate. No murmur, S3, or S4 Abdomen: Soft , nontender, nondistended , bowel sounds are present. No guarding no rebound tenderness , No masses or organomegaly. No costovertebral temporal angle mass Extremities: Normal to inspection, no pitting, cyanosis, or clubbing Skin: no rashes or lesions, diaphoretic Neuro: no focal deficits, CN 2-12 intact. motor and sensory intact Additional Comments Home medications reviewed PROCEDURE: XR Chest. CLINICAL INDICATION: Possible sepsis. TECHNIQUE: Single frontal view of the chest was obtained. COMPARISON: DR SENIOR 12/12/2017 FINDINGS: Cardiomediastinal silhouette appears normal Pulmonary vasculature appears normal. Lung momin appear clear. Costophrenic angles are well defined. The osseous elements appear intact. IMPRESSION: 1. No evidence for active cardiopulmonary disease. RPTAT: [facility] Physician Pritesh Date Time Electronically viewed and signed by Fan Herr Physician on 02/26/2019 15:03 LENKA MARTINEZ MD February 26, 2019 18:11
[2019-02-26] MEDS ORDERED: POTASSIUM PHOSPHATE 15 MM in SOD CHLORIDE 0.9% 250 ML IVPB ONE (18:30)
--- NOTE | 2019-02-26 18:55 | ERD ---
ER Documentation Chief Complaint Chief Complaint VOMITING, INSULIN DEPENDENT , KUSMAULL RESPIRATIONS NOTED HPI 28-year-old female with a history of insulin-dependent diabetes presenting with diaphoresis, nausea and vomiting that started this morning. She denies any associated abdominal pain or dysuria. She was noted to have Kussmaul respirations in triage. She is denying any recent illness. ROS All systems reviewed and are negative except as per history of present illness. Medications Home Meds Reported Medications Lactulose* (Lactulose*) 10 Gm/15 Ml Solution, 15 ML PO NEEDED, ML 02/26/19 Insulin Aspart* (Novolog Insulin Pen*) 100 Unit/Ml Soln, 20 UNIT SC WITH MEALS, EA 02/26/19 Insulin Glargine,Hum.rec.anlog (Basaglar Kwikpen U-100) 100 Unit/1 Ml Insuln.pen, 30 UNIT SC QHS, EA 02/26/19 Ondansetron Hcl* (Zofran*) 4 Mg Tab, 4 MG PO Q6H PRN for NAUSEA AND OR VOMITING, TAB 02/26/19 Lorazepam* (Lorazepam*) 0.5 Mg Tablet, 0.5 MG PO HS PRN for ANXIETY, TAB 02/26/19 Sertraline Hcl* (Sertraline Hcl*) 100 Mg Tablet, 100 MG PO DAILY, #30 TAB 02/26/19 Discontinued Scripts Metoclopramide* (Reglan*) 10 Mg Tablet, 10 MG PO Q6 PRN for NAUSEA AND/OR VOMITING, #10 TAB Prov:GAYLE ROSAS PA-C 01/24/19 Ondansetron Hcl* (Zofran*) 4 Mg Tab, 4 MG PO Q4H PRN for NAUSEA AND OR VOMITING, #30 TAB Prov:BELLA SENA SURVEYOR [employer] 12/14/17 Insulin Glargine* (Lantus*) 100 Unit/Ml Soln, 20 UNIT SC QHS for 30 Days Prov:BELLA SENA SURVEYOR [employer]OD 12/14/17 Allergies Allergies: Coded Allergies: Milk Containing Products (Verified Allergy, Intermediate, 02/26/19) metformin (Unverified Allergy, Unknown, 02/26/19) PMhx/Soc History of Surgery: No Anesthesia Reaction: No Hx Neurological Disorder: No Hx Respiratory Disorders: No Hx Cardiac Disorders: No Hx Psychiatric Problems: No Hx Miscellaneous Medical Probl: No Hx Alcohol Use: Yes (social) Hx Substance Use: Yes (marijuana yesterday 02/25/19) Hx Tobacco Use: Yes Smoking Status: Current every day smoker FmHx Family History: No coronary disease Physical Exam Vitals Vital Signs Date Temp Pulse Resp B/P (MAP) Pulse Ox O2 O2 Flow FiO2 Time Delivery Rate 02/26/19 75 24 132/78 100 Room Air 17:58 (96) 02/26/19 72 18 122/65 100 Room Air 17:15 (84) 02/26/19 66 22 115/79 99 Room Air 16:01 (91) 02/26/19 98.1 85 36 146/98 99 13:26 (114) Physical Exam Const: Diaphoretic, retching, ill-appearing Head: Atraumatic Eyes: Normal Conjunctiva, PERRLA, EOMI ENT: Dry mucous membranes. Normal External Ears, Nose and Mouth. Neck: Full range of motion. No meningismus. Resp: Tachypneic. Clear to auscultation bilaterally Cardio: Tachycardic with regular rhythm, no murmurs Abd: Soft, non tender, non distended. Normal bowel sounds Skin: No petechiae or rashes Back: No midline or flank tenderness Ext: No cyanosis, or edema Neur: Awake and alert, normal speech, no facial asymmetry, moving all extremities Psych: Normal Mood and Affect Result Diagram: 02/26/19 1355 02/26/19 1629 Results 24 hrs Laboratory Tests Test 02/26/19 13:40 02/26/19 13:44 02/26/19 13:45 02/26/19 13:55 Blood Gas Blood venous Specimen Source Arterial Blood 02/26/2019 2:55: Date Drawn 04 PM Arterial Blood VENOUS LINE Gas Puncture Site Frantz Test N/A Venous Blood pH 7.478 Venous Blood 25.2 mmHG pCO2 (Temp Corrected ) Venous Blood 67.0 mmHG pO2 (Temp Corrected ) Venous Blood 18.3 mmol/L HCO3 Venous Blood 94.3 mmHG Oxygen Saturation Venous Blood -3.4 mmol/L Base Excess Venous Blood 14.5 g/dl Total Hemoglobin Venous Blood 93.8 % Oxyhemoglobin Venous Blood 0.1 % Methemoglobin Carboxyhemoglob 0.4 % in Blood Gas 37.0 C Temperature Blood Gas ROOM AIR Modality FiO2 21.0 % Blood Gas M.D. Notified Whom Blood Gas 02/26/2019 3:03: Notified Time 56 PM Bedside Glucose 260 mg/dL Lipase 52 U/L White Blood 18.8 10^3/ul Count Red Blood Count 5.59 10^6/ul Hemoglobin 15.5 g/dl Hematocrit 45.1 % Mean 80.7 fl Corpuscular Volume Mean 27.7 pg Corpuscular Hemoglobin Mean 34.4 g/dl Corpuscular Hemoglobin Conc ent Red Cell 12.4 % Distribution Width Platelet Count 254 10^3/UL Mean Platelet 12.4 fl Volume Immature 0.500 % Granulocytes % Neutrophils % 76.5 % Lymphocytes % 18.0 % Monocytes % 4.1 % Eosinophils % 0.5 % Basophils % 0.4 % Nucleated Red 0.0 /100WBC Blood Cells % Immature 0.090 10^3/ul Granulocytes # Neutrophils # 14.4 10^3/ul Lymphocytes # 3.4 10^3/ul Monocytes # 0.8 10^3/ul Eosinophils # 0.1 10^3/ul Basophils # 0.1 10^3/ul Nucleated Red 0.0 10^3/ul Blood Cells # Sodium Level 139 mmol/L Potassium Level 3.7 mmol/L Chloride Level 106 mmol/L Carbon Dioxide 19 mmol/L Level Anion Gap 14 Blood Urea 14 mg/dl Nitrogen Creatinine 0.58 mg/dl Est Glomerular > 60 mL/min Filtrat Rate mL/min Glucose Level 243 mg/dl Hemoglobin A1c 7.7 % Calcium Level 9.9 mg/dl Phosphorus 1.0 mg/dl Level Magnesium Level 1.5 mg/dl Total Bilirubin 0.5 mg/dl Direct 0.00 mg/dl Bilirubin Indirect 0.5 mg/dl Bilirubin Aspartate Amino 22 IU/L Transf (AST/SGO T) Alanine 21 IU/L Aminotransferas e (ALT/SGPT) Alkaline 119 IU/L Phosphatase Total Protein 8.5 g/dl Albumin 4.6 g/dl Globulin 3.90 g/dl Albumin/Globuli 1.17 n Ratio Serum HCG, NEGATIVE Qualitative Test 02/26/19 14:14 02/26/19 14:21 02/26/19 15:55 02/26/19 16:24 POC Venous 2.8 mmol/L 2.6 mmol/L Lactate Urine Color YELLOW Urine Clarity SLIGHTLY CLOUDY Urine pH 7.0 Urine Specific 1.021 [place] Urine Ketones 2+ mg/dL Urine Nitrite NEGATIVE mg/dL Urine Bilirubin NEGATIVE mg/dL Urine NEGATIVE mg/dL Urobilinogen Urine Leukocyte NEGATIVE Tal/ul Esterase Urine 0 /HPF Microscopic RBC Urine 1 /HPF Microscopic WBC Urine Squamous MODERATE /HPF Epithelial Cell s Urine Mucus FEW /HPF Urine NEGATIVE mg/dL Hemoglobin Urine Glucose 3+ mg/dL Urine Total NEGATIVE mg/dl Protein Bedside Glucose 228 mg/dL Test 02/26/19 16:29 02/26/19 17:52 Sodium Level 139 mmol/L Potassium Level 4.0 mmol/L Chloride Level 107 mmol/L Carbon Dioxide 19 mmol/L Level Anion Gap 13 Blood Urea 12 mg/dl Nitrogen Creatinine 0.52 mg/dl Est Glomerular > 60 mL/min Filtrat Rate mL/min Glucose Level 257 mg/dl Lactic Acid 3.2 mmol/L Level Calcium Level 9.0 mg/dl Phosphorus 1.5 mg/dl Level Magnesium Level 1.4 mg/dl Bedside Glucose 250 mg/dL Current Medications Medications Dose Sig/Meredith Start Time Status Last (Trade) Ordered Route PRN Stop Time Admin Dose Reason Admin Sodium 1,000 ml @ ONCE ONCE 02/26/19 DC 02/26/19 Chloride 1,000 mls/hr IV 14:00 13:51 02/26/19 14:59 Ondansetron 4 mg STK-MED 02/26/19 DC HCl (Zofran ONCE .ROUTE 13:56 Inj) 02/26/19 13:57 Ondansetron 4 mg ONCE STAT 02/26/19 DC 02/26/19 HCl (Zofran IV 13:58 14:05 Inj) 02/26/19 13:59 Lorazepam 1 mg ONCE ONCE 02/26/19 DC 02/26/19 (Ativan) IV 14:30 14:30 02/26/19 14:31 Ceftriaxone 50 ml @ ONCE STAT 02/26/19 DC 02/26/19 Sodium 100 mls/hr IVPB 14:22 14:38 02/26/19 14:51 Potassium 1,000 ml @ Q0M IV 02/26/19 DC Chloride/Sodi 0 mls/hr 15:40 um Chloride 02/26/19 17:57 Potassium 1,000 ml @ Q0M IV 02/26/19 DC Chloride/Dext 0 mls/hr 15:40 [place]/ Sod Cl 02/26/19 17:57 Potassium 1,000 ml @ Q0M IV 02/26/19 DC Chloride/Sodi 0 mls/hr 15:40 um Chloride 02/26/19 17:57 Potassium 1,000 ml @ Q0M IV 02/26/19 DC Chloride/Dext 0 mls/hr 15:40 [place]/ Sod Cl 02/26/19 17:58 Sodium 1,000 ml @ Q0M IV 02/26/19 DC Chloride 0 mls/hr 15:40 02/26/19 17:58 1,000 ml @ Q0M IV 02/26/19 DC Dextrose/Sodi 0 mls/hr 15:40 um Chloride 02/26/19 17:58 Insulin 101 ml @ ER DKA 02/26/19 DC Human 10.1 mls/hr PROTOCOL IV 16:00 Regular 100 02/26/19 17:58 unit/ Sodium Chloride Lactated 1,000 ml @ ONCE ONCE 02/26/19 DC 02/26/19 Ringer's 1,000 mls/hr IV 16:00 15:58 02/26/19 17:58 HYPOGLYCEM 02/26/19 DC Miscellaneous HYPOGLYCEMIA PROTOCOL PRN 16:00 TREATMENT XX 02/26/19 17:58 Information .HYPOGLYCEMIA (* PROTOCOL Miscellaneous Pharmacy Order) Dextrose 50 ml Q15M PRN 02/26/19 DC (D50w IV 16:00 Syringe) .DECREASED 02/26/19 17:58 GLUCOSE Dextrose 25 ml Q15M PRN 02/26/19 DC (D50w IV 16:00 Syringe) .DECREASED 02/26/19 17:58 GLUCOSE Sertraline 100 mg DAILY PO 02/27/19 HCl 09:00 (Zoloft) Lorazepam 1 mg Q4 PRN IV 02/26/19 (Ativan) anxiety 17:30 Ondansetron 4 mg Q6H PRN 02/26/19 HCl (Zofran IV NAUSEA 17:30 Inj) AND/OR VOMITING 10 mg Q6H PRN 02/26/19 02/26/19 Metoclopramid IV NAUSEA 17:30 19:00 e HCl AND/OR (Reglan) VOMITING 650 mg Q6H PRN 02/26/19 Acetaminophen PO PAIN 17:30 (Tylenol LEVEL 1-3 OR Tab) FEVER Docusate 100 mg Q12H PRN 02/26/19 Sodium PO 17:30 (Colace) CONSTIPATION Magnesium 30 ml DAILY PRN 02/26/19 Hydroxide PO 17:30 (Milk Of Mag) CONSTIPATION Famotidine 20 mg Q12 IV 02/26/19 (Pepcid Iv) 21:00 Magnesium 50 ml @ 25 ONCE ONCE 02/26/19 02/26/19 Sulfate mls/hr IVPB 17:30 18:25 02/26/19 19:29 Insulin 15 unit QHS SC 02/26/19 Glargine 21:00 (Lantus) Lactated 1,000 ml @ Q10H IV 02/26/19 02/26/19 Ringer's 100 mls/hr 18:00 19:00 Discontinue ONCE ONCE 02/26/19 DC Miscellaneous current oral XX 18:00 sulfonylur... 02/26/19 18:43 Information (* Miscellaneous Pharmacy Order) ONCE ONCE 02/26/19 DC Miscellaneous HYPOGLYCEMIA XX 18:00 PROTOCOL 02/26/19 18:43 Information w... (* Miscellaneous Pharmacy Order) Insulin NOVOLOG WITH MEALS 02/26/19 Aspart *MILD* BEDTIME SC 18:00 (Novolog ALGORITHM Insulin Pen) Discontinue ONCE ONCE 02/26/19 DC Miscellaneous all previ... XX 18:00 02/26/19 18:43 Information (* Miscellaneous Pharmacy Order) Potassium 255 ml @ ONCE ONCE 02/26/19 Phosphate 15 63.75 mls/ IVPB 18:30 mm/ Sodium hr 02/26/19 22:29 Chloride 1 ea NOTE XX 02/26/19 Miscellaneous 19:00 Information Glucose 15 gm Q15M PRN 02/26/19 (Glutose) PO DECREASED 19:00 GLUCOSE Glucose 22.5 gm Q15M PRN 02/26/19 (Glutose) PO DECREASED 19:00 GLUCOSE Dextrose 25 ml Q15M PRN 02/26/19 (D50w IV DECREASED 19:00 Syringe) GLUCOSE Dextrose 50 ml Q15M PRN 02/26/19 (D50w IV DECREASED 19:00 Syringe) GLUCOSE Glucagon 1 mg Q15M PRN 02/26/19 (Glucagen) IM DECREASED 19:00 GLUCOSE Glucose 15 gm Q15M PRN 02/26/19 (Glutose) BUCCAL 19:00 DECREASED GLUCOSE Procedures/MDM EMERGENT LABS AND DIAGNOSTIC STUDIES: Lab Results above were reviewed and interpreted by me. CBC: no anemia or evidence of infection CMP: Hyperglycemia with elevated anion gap and low CO2. Findings concerning for DKA. No evidence of clinically significant electrolyte abnormality or renal failure Lactate elevated, likely due to the dehydration and tissue hypoperfusion UA: no evidence of infection. 2+ ketones noted Radiology Results as interpreted by Radiology below were reviewed by Chio Lugo MD: Chest x-ray shows no acute abnormalities Initial Nursing notes reviewed. Previous Medical Records requested via the Electronic Health Record. EMERGENCY DEPARTMENT COURSE / MEDICAL DECISION MAKING: Patient is presenting with nausea and vomiting and is ill-appearing on evaluation. She was afebrile but noted to be tachypneic. Work-up is consistent with DKA. ABG showed that she does have respiratory compensation. Patient was started on DKA protocol. She received 2 L of IV fluid initially. Her lactate was elevated, but I have a low suspicion for severe sepsis or septic shock. Although she has leukocytosis, this is most likely a stress response. Tachypnea is most likely due to respiratory compensation for metabolic acidosis. There is no source of infection on exam or on work-up. Lactic acidosis is likely related to dehydration. Patient's condition is not stable and she will require adm ission for further work-up and management. Critical Care Time: 35 minutes Treatments/Evaluations: Close monitoring and treatment of unstable vital signs, cardiorespiratory, and neurologic status, while maintaining tight balance of fluid, respiratory, and cardiac interventions. This time includes discussing the case with the patient and the patients family. This time does not include all procedures stated elsewhere in this record. This time also includes reviewing old records, labs and radiological studies. This time includes examining and re- examining the patient. Additionally, this time also includes arranging care with admitting and consulting physicians. Accepting Care Team: Current data and ongoing care discussed. Time: Time of admission Primary Provider: Dr. Shorty Aiken Diagnosis: Primary Impression: DKA (diabetic ketoacidoses) Diabetes mellitus type: type 2 Diabetes mellitus complication detail: without coma Qualified Codes: E11.10 - Type 2 diabetes mellitus with ketoacidosis without coma Additional Impressions: Nausea and vomiting Vomiting type: unspecified Vomiting Intractability: non-intractable Qualified Codes: R11.2 - Nausea with vomiting, unspecified Lactic acidosis Condition: Serious ALOK LUGO MD February 26, 2019 18:55
[2019-02-26] MEDS: LACTATED RINGER'S 1,000 ML IV SCH (19:00)
[2019-02-26] MEDS ORDERED: GLUCAGON 1 MG INJ IM PRN (19:00)
[2019-02-26] MEDS ORDERED: GLUCOSE GEL 15 GRAM TUBE PO PRN ×2 (19:00)
[2019-02-26] MEDS ORDERED: GLUCOSE GEL 15 GRAM TUBE BUCCAL PRN (19:00)
[2019-02-26] MEDS ORDERED: INSULIN GLARGINE [LANtus] 3 ML PEN SC SCH (21:00)
[2019-02-26] MEDS: FAMOTIDINE 20 MG INJ IV SCH (22:09)
[2019-02-26] MEDS: INSULIN GLARGINE [LANTus] (100 UNITS/ML) SYG SC SCH (22:18)
[2019-02-27] MEDS: LACTATED RINGER'S 1,000 ML IV SCH ×2 (04:47→10:27)
[2019-02-27] MEDS: INSULIN ASPART [NOVOLOG] 3 ML PEN SC SCH ×4 (07:22→21:00)
[2019-02-27] MEDS: FAMOTIDINE 20 MG INJ IV SCH ×2 (09:23→22:09)
[2019-02-27] MEDS: SERTRALINE 100 MG TAB PO SCH (09:24)
[2019-02-27] MEDS: NAPHAZOLINE/PHENIRAMINE 15 ML OPH BOTH EYES SCH ×4 (10:00→23:29)
--- NOTE | 2019-02-27 10:11 | PN ---
Date/Time of Note Date/Time of Note DATE: 02/27/19 TIME: 10:05 Assessment/Plan VTE Prophylaxis SCD applied (from Nsg): Yes Pharmacological prophylaxis: NA/contraindicated Pharm contraindication: low risk/ambulating Lines/Catheters IV Catheter Type (from Nrsg): Saline Lock Assessment/Plan Assessment/Plan 1. Mild Diabetic Ketoacidosis- resolved - patient tolerating clear diet - gap closed 2. Nausea with vomiting- resolved - will advance to soft diet and if tolerating will transition to regular diet and d/c fluids 3. Diabetes Mellitus with hyperglycemia- improving - A1c noted - currently on Lantus 15 and will adjust as needed. Home dose 30 units - ISS and accuchecks 4. Electrolyte derangement- resolved 5. lactic acidosis- resolved - most likely secondary to dehydration 6. Acute dehydration secondary to #2- resolving - LR on board and will wean off based on PO tolerance 7. Disposition - will downgrade to med surg. Advance diet as tolerated. Once tolerating regular diet and glucose remains stable, will d/c home Result Diagram: 02/27/19 0547 02/27/19 0547 Results 24hrs Laboratory Tests Test 02/26/19 13:40 02/26/19 13:44 02/26/19 13:45 02/26/19 13:55 Blood Gas Blood venous Specimen Source Arterial Blood 02/26/2019 2:55: Date Drawn 04 PM Arterial Blood VENOUS LINE Gas Puncture Site Frantz Test N/A Venous Blood pH 7.478 H Venous Blood 25.2 L pCO2 (Temp Corrected) Venous Blood pO2 67.0 H (Temp Corrected) Venous Blood 18.3 L HCO3 Venous Blood 94.3 H Oxygen Saturation Venous Blood -3.4 Base Excess Venous Blood 14.5 Total Hemoglobin Venous Blood 93.8 Oxyhemoglobin Venous Blood 0.1 Methemoglobin Carboxyhemoglobi 0.4 n Blood Gas 37.0 Temperature Blood Gas ROOM AIR Modality FiO2 21.0 Blood Gas M.D. Notified Whom Blood Gas 02/26/2019 3:03: Notified Time 56 PM Bedside Glucose 260 H Lipase 52 White Blood 18.8 #H Count Red Blood Count 5.59 H Hemoglobin 15.5 Hematocrit 45.1 Mean Corpuscular 80.7 L Volume Mean Corpuscular 27.7 L Hemoglobin Mean Corpuscular 34.4 Hemoglobin Ashley nt Red Cell 12.4 Distribution Width Platelet Count 254 # Mean Platelet 12.4 H Volume Immature 0.500 H Granulocytes % Neutrophils % 76.5 Lymphocytes % 18.0 Monocytes % 4.1 Eosinophils % 0.5 Basophils % 0.4 Nucleated Red 0.0 Blood Cells % Immature 0.090 H Granulocytes # Neutrophils # 14.4 H Lymphocytes # 3.4 H Monocytes # 0.8 Eosinophils # 0.1 Basophils # 0.1 Nucleated Red 0.0 Blood Cells # Sodium Level 139 Potassium Level 3.7 Chloride Level 106 Carbon Dioxide 19 L Level Anion Gap 14 H Blood Urea 14 Nitrogen Creatinine 0.58 Est Glomerular > 60 Filtrat Rate mL/min Glucose Level 243 H Hemoglobin A1c 7.7 H Calcium Level 9.9 Phosphorus Level 1.0 L Magnesium Level 1.5 L Total Bilirubin 0.5 Direct Bilirubin 0.00 Indirect 0.5 Bilirubin Aspartate Amino 22 Transf (AST/SGOT ) Alanine 21 Aminotransferase (ALT/SGPT) Alkaline 119 Phosphatase Total Protein 8.5 H Albumin 4.6 Globulin 3.90 H Albumin/Globulin 1.17 Ratio Serum HCG, NEGATIVE Qualitative Test 02/26/19 14:14 02/26/19 14:21 02/26/19 15:55 02/26/19 16:24 POC Venous 2.8 *H 2.6 *H Lactate Urine Color YELLOW Urine Clarity SLIGHTLY CLOUDY A Urine pH 7.0 Urine Specific 1.021 [place] Urine Ketones 2+ H Urine Nitrite NEGATIVE Urine Bilirubin NEGATIVE Urine NEGATIVE Urobilinogen Urine Leukocyte NEGATIVE Esterase Urine 0 Microscopic RBC Urine 1 Microscopic WBC Urine Squamous MODERATE Epithelial Cells Urine Mucus FEW A Urine Hemoglobin NEGATIVE Urine Glucose 3+ H Urine Total NEGATIVE Protein Bedside Glucose 228 H Test 02/26/19 16:29 02/26/19 17:52 02/26/19 18:31 02/26/19 19:34 Sodium Level 139 Potassium Level 4.0 Chloride Level 107 Carbon Dioxide 19 L Level Anion Gap 13 Blood Urea 12 Nitrogen Creatinine 0.52 Est Glomerular > 60 Filtrat Rate mL/min Glucose Level 257 H Lactic Acid 3.2 *H 4.1 *H Level Calcium Level 9.0 Phosphorus Level 1.5 L Magnesium Level 1.4 L Bedside Glucose 250 H 246 H Test 02/26/19 22:05 02/27/19 00:48 02/27/19 05:47 02/27/19 07:20 Bedside Glucose 232 H 189 130 White Blood 17.3 H Count Red Blood Count 4.77 Hemoglobin 13.3 Hematocrit 39.3 Mean Corpuscular 82.4 Volume Mean Corpuscular 27.9 L Hemoglobin Mean Corpuscular 33.8 Hemoglobin Ashley nt Red Cell 12.9 Distribution Width Platelet Count 208 Mean Platelet 12.2 H Volume Immature 0.300 Granulocytes % Neutrophils % 71.7 Lymphocytes % 19.6 Monocytes % 8.0 Eosinophils % 0.2 Basophils % 0.2 Nucleated Red 0.0 Blood Cells % Immature 0.060 H Granulocytes # Neutrophils # 12.4 H Lymphocytes # 3.4 H Monocytes # 1.4 H Eosinophils # 0.0 Basophils # 0.0 Nucleated Red 0.0 Blood Cells # Sodium Level 141 Potassium Level 3.7 Chloride Level 109 Carbon Dioxide 25 Level Anion Gap 7 Blood Urea 7 Nitrogen Creatinine 0.53 Glucose Level 140 # Lactic Acid 1.0 Level Calcium Level 8.5 Phosphorus Level 3.3 Magnesium Level 2.0 Albumin 3.6 # Subjective 24 Hr Interval Summary Free Text/Dictation Patient states shes feeling significantly better and tolerating clear diet. She now remembers having "green crust" in her eyes bilaterally. No acute overnight events. Exam/Review of Systems Exam Vitals Vital Signs Date Temp Pulse Resp B/P (MAP) Pulse Ox O2 O2 Flow FiO2 Time Delivery Rate 02/27/19 84 18 117/58 97 Room Air 08:17 (77) 02/27/19 98.6 06:47 Intake and Output 02/26/19 02/26/19 02/27/19 1515:00 23:00 07:00 IntakeIntake Total 1050 ml 1050 ml BalanceBalance 1050 ml 1050 ml Exam General: no acute distress. awake and answering questions appropriately. Neck: Supple Chest: Nontender Lungs: Clear to auscultation bilaterally, no wheezing or rhonchi Heart: Normal S1-S2, Regular rhythm and rate. No murmur, S3, or S4 Abdomen: Soft , nontender, nondistended , bowel sounds are present. No guarding no rebound tenderness Extremities: Normal to inspection, no pitting, cyanosis, or clubbing Skin: no rashes or lesions Results Results 24hrs Laboratory Tests Test 02/26/19 13:40 02/26/19 13:44 02/26/19 13:45 02/26/19 13:55 Blood Gas Blood venous Specimen Source Arterial Blood 02/26/2019 2:55: Date Drawn 04 PM Arterial Blood VENOUS LINE Gas Puncture Site Frantz Test N/A Venous Blood pH 7.478 H Venous Blood 25.2 L pCO2 (Temp Corrected) Venous Blood pO2 67.0 H (Temp Corrected) Venous Blood 18.3 L HCO3 Venous Blood 94.3 H Oxygen Saturation Venous Blood -3.4 Base Excess Venous Blood 14.5 Total Hemoglobin Venous Blood 93.8 Oxyhemoglobin Venous Blood 0.1 Methemoglobin Carboxyhemoglobi 0.4 n Blood Gas 37.0 Temperature Blood Gas ROOM AIR Modality FiO2 21.0 Blood Gas M.D. Notified Whom Blood Gas 02/26/2019 3:03: Notified Time 56 PM Bedside Glucose 260 H Lipase 52 White Blood 18.8 #H Count Red Blood Count 5.59 H Hemoglobin 15.5 Hematocrit 45.1 Mean Corpuscular 80.7 L Volume Mean Corpuscular 27.7 L Hemoglobin Mean Corpuscular 34.4 Hemoglobin Ashley nt Red Cell 12.4 Distribution Width Platelet Count 254 # Mean Platelet 12.4 H Volume Immature 0.500 H Granulocytes % Neutrophils % 76.5 Lymphocytes % 18.0 Monocytes % 4.1 Eosinophils % 0.5 Basophils % 0.4 Nucleated Red 0.0 Blood Cells % Immature 0.090 H Granulocytes # Neutrophils # 14.4 H Lymphocytes # 3.4 H Monocytes # 0.8 Eosinophils # 0.1 Basophils # 0.1 Nucleated Red 0.0 Blood Cells # Sodium Level 139 Potassium Level 3.7 Chloride Level 106 Carbon Dioxide 19 L Level Anion Gap 14 H Blood Urea 14 Nitrogen Creatinine 0.58 Est Glomerular > 60 Filtrat Rate mL/min Glucose Level 243 H Hemoglobin A1c 7.7 H Calcium Level 9.9 Phosphorus Level 1.0 L Magnesium Level 1.5 L Total Bilirubin 0.5 Direct Bilirubin 0.00 Indirect 0.5 Bilirubin Aspartate Amino 22 Transf (AST/SGOT ) Alanine 21 Aminotransferase (ALT/SGPT) Alkaline 119 Phosphatase Total Protein 8.5 H Albumin 4.6 Globulin 3.90 H Albumin/Globulin 1.17 Ratio Serum HCG, NEGATIVE Qualitative Test 02/26/19 14:14 02/26/19 14:21 02/26/19 15:55 02/26/19 16:24 POC Venous 2.8 *H 2.6 *H Lactate Urine Color YELLOW Urine Clarity SLIGHTLY CLOUDY A Urine pH 7.0 Urine Specific 1.021 [place] Urine Ketones 2+ H Urine Nitrite NEGATIVE Urine Bilirubin NEGATIVE Urine NEGATIVE Urobilinogen Urine Leukocyte NEGATIVE Esterase Urine 0 Microscopic RBC Urine 1 Microscopic WBC Urine Squamous MODERATE Epithelial Cells Urine Mucus FEW A Urine Hemoglobin NEGATIVE Urine Glucose 3+ H Urine Total NEGATIVE Protein Bedside Glucose 228 H Test 02/26/19 16:29 02/26/19 17:52 02/26/19 18:31 02/26/19 19:34 Sodium Level 139 Potassium Level 4.0 Chloride Level 107 Carbon Dioxide 19 L Level Anion Gap 13 Blood Urea 12 Nitrogen Creatinine 0.52 Est Glomerular > 60 Filtrat Rate mL/min Glucose Level 257 H Lactic Acid 3.2 *H 4.1 *H Level Calcium Level 9.0 Phosphorus Level 1.5 L Magnesium Level 1.4 L Bedside Glucose 250 H 246 H Test 02/26/19 22:05 02/27/19 00:48 02/27/19 05:47 02/27/19 07:20 Bedside Glucose 232 H 189 130 White Blood 17.3 H Count Red Blood Count 4.77 Hemoglobin 13.3 Hematocrit 39.3 Mean Corpuscular 82.4 Volume Mean Corpuscular 27.9 L Hemoglobin Mean Corpuscular 33.8 Hemoglobin Ashley nt Red Cell 12.9 Distribution Width Platelet Count 208 Mean Platelet 12.2 H Volume Immature 0.300 Granulocytes % Neutrophils % 71.7 Lymphocytes % 19.6 Monocytes % 8.0 Eosinophils % 0.2 Basophils % 0.2 Nucleated Red 0.0 Blood Cells % Immature 0.060 H Granulocytes # Neutrophils # 12.4 H Lymphocytes # 3.4 H Monocytes # 1.4 H Eosinophils # 0.0 Basophils # 0.0 Nucleated Red 0.0 Blood Cells # Sodium Level 141 Potassium Level 3.7 Chloride Level 109 Carbon Dioxide 25 Level Anion Gap 7 Blood Urea 7 Nitrogen Creatinine 0.53 Glucose Level 140 # Lactic Acid 1.0 Level Calcium Level 8.5 Phosphorus Level 3.3 Magnesium Level 2.0 Albumin 3.6 # Medications Medication Current Medications Sertraline HCl (Zoloft) 100 mg DAILY PO Last administered on 02/27/19at 09:24; Admin Dose 100 MG; Start 02/27/19 at 09:00 Lorazepam (Ativan) 1 mg Q4 PRN IV anxiety Last administered on 02/26/19at 20:16; Admin Dose 1 MG; Start 02/26/19 at 17:30 Ondansetron HCl (Zofran Inj) 4 mg Q6H PRN IV NAUSEA AND/OR VOMITING; Start 02/26/19 at 17:30 Metoclopramide HCl (Reglan) 10 mg Q6H PRN IV NAUSEA AND/OR VOMITING Last administered on 02/26/19at 19:00; Admin Dose 10 MG; Start 02/26/19 at 17:30 Acetaminophen (Tylenol Tab) 650 mg Q6H PRN PO PAIN LEVEL 1-3 OR FEVER; Start 02/26/19 at 17:30 Docusate Sodium (Colace) 100 mg Q12H PRN PO CONSTIPATION; Start 02/26/19 at 17:30 Magnesium Hydroxide (Milk Of Mag) 30 ml DAILY PRN PO CONSTIPATION; Start 02/26/19 at 17:30 Famotidine (Pepcid Iv) 20 mg Q12 IV Last administered on 02/27/19at 09:23; Admin Dose 20 MG; Start 02/26/19 at 21:00 Lactated Ringer's 1,000 ml @ 60 mls/hr [id number] IV Last administered on 02/27/19at 04:47; Admin Dose 100 MLS/HR; Start 02/26/19 at 18:00 Insulin Aspart (Novolog Insulin Pen) NOVOLOG *MILD* ALGORITHM WITH MEALS BEDTIME SC ; Start 02/26/19 at 18:00 Miscellaneous Information 1 ea NOTE XX ; Start 02/26/19 at 19:00 Glucose (Glutose) 15 gm Q15M PRN PO DECREASED GLUCOSE; Start 02/26/19 at 19:00 Glucose (Glutose) 22.5 gm Q15M PRN PO DECREASED GLUCOSE; Start 02/26/19 at 19:00 Dextrose (D50w Syringe) 25 ml Q15M PRN IV DECREASED GLUCOSE; Start 02/26/19 at 19:00 Dextrose (D50w Syringe) 50 ml Q15M PRN IV DECREASED GLUCOSE; Start 02/26/19 at 19:00 Glucagon (Glucagen) 1 mg Q15M PRN IM DECREASED GLUCOSE; Start 02/26/19 at 19:00 Glucose (Glutose) 15 gm Q15M PRN BUCCAL DECREASED GLUCOSE; Start 02/26/19 at 19:00 Insulin Glargine (Lantus) 15 units QHS SC Last administered on 02/26/19at 22:18; Admin Dose 15 UNITS; Start 02/26/19 at 22:00 Naphazoline HCl/ Pheniramine Maleate (Naphcon A) 2 drop Q6 BOTH EYES ; Start 02/27/19 at 10:00 LENKA MARTINEZ MD February 27, 2019 10:11
[2019-02-27] MEDS: CHLORHEXIDINE GLUCONATE 15 ML UD CUP MT SCH ×2 (10:30→22:09)
[2019-02-27 10:54] VITALS: BP 119/78; PULSE 56; RESP 20
[2019-02-27 11:00] VITALS: Ht 165.1 cm; Wt 100.0 kg
[2019-02-27] MEDS ORDERED: VANCOMYCIN IV PER PHARMACY XX SCH (16:00)
--- NOTE | 2019-02-27 17:51 | CONS ---
DATE OF ADMISSION: 02/26/2019 DATE OF CONSULTATION: 02/27/2019 TYPE OF CONSULTATION: Infectious disease. REASON FOR CONSULTATION: Antibiotic management. HISTORY OF PRESENT ILLNESS: Goldie Beatty is a 28-year-old female with a history of insulin-depe ndent diabetes mellitus who presented with nausea, vomiting and diaphoresis and is being seen for ant ibiotic management. She had no abdominal pain, no dysuria. She has some Kussmaul respirations. PAST MEDICAL HISTORY: Noncontributory. FAMILY HISTORY: Noncontributory. SOCIAL HISTORY: She drinks socially. She uses marijuana. She is an everyday smoker. LABORATORY DATA: On admission, her white count was 18.8, H and H 15.5 and 45.1, platelet count 254,0 00. BUN and creatinine is 12/0.52, glucose of 257,000. The patient was noted to have mild diabetic ketoacidosis, which resolved. Her nausea and vomiting have resolved. She is on medication for her d iabetes. Lactic acidosis resolved. Her white count today is 17.3. PHYSICAL EXAMINATION: GENERAL: She is diaphoretic, ill-appearing, well-developed, well-nourished female. VITAL SIGNS: Stable. She is afebrile. SKIN: Without generalized rash. HEENT: Within normal limits. NECK: Supple. LYMPH NODES: None palpable. CHEST: Decreased breath sounds at the bases. HEART: Without murmur or gallop. ABDOMEN: Soft, nontender without organosplenomegaly or masses. EXTREMITIES: Without cyanosis, clubbing or edema. RECTAL AND GENITAL: Deferred. NEUROLOGIC: No focal neurological abnormalities. IMPRESSION AND PLAN: The patient currently is being treated for her diabetic ketoacidosis. Her ches t x-ray shows no evidence for cardiopulmonary disease, but her blood cultures are positive for gram-p ositive cocci in clusters drawn 10 minutes apart. Since they were drawn 10 minutes apart, I believe that they are real. She is currently on no antibiotics. I would repeat her blood cultures. Her whi te count is 17.3. Urine is negative. I would repeat her antibiotics and start her on vancomycin at this point. I will dictate my findings to the hospitalist. Dictated By: KATHIA FUENTES MD, JD/SOUMYA Conf#: [id number] DID#: [id number] CC: LENKA MARTINEZ MD;*End*
[2019-02-27] MEDS ORDERED: VANCOMYCIN HCL 1.75 GM in SOD CHLORIDE 0.9% 500 ML IVPB SCH (18:00)
[2019-02-27 20:13] VITALS: BP 110/79; PULSE 89; RESP 20
[2019-02-27] MEDS: INSULIN GLARGINE [LANTus] (100 UNITS/ML) SYG SC SCH (22:11)
[2019-02-28] MEDS: VANCOMYCIN HCL 1.25 GM in SOD CHLORIDE 0.9% 250 ML IVPB SCH ×2 (01:33→09:36)
[2019-02-28] MEDS: NAPHAZOLINE/PHENIRAMINE 15 ML OPH BOTH EYES SCH ×2 (05:09→12:00)
[2019-02-28 07:33] VITALS: BP 117/62; PULSE 65; RESP 18
[2019-02-28] MEDS: INSULIN ASPART [NOVOLOG] 3 ML PEN SC SCH ×2 (09:35→13:31)
[2019-02-28] MEDS: CHLORHEXIDINE GLUCONATE 15 ML UD CUP MT SCH (09:35)
[2019-02-28] MEDS: FAMOTIDINE 20 MG INJ IV SCH (09:36)
[2019-02-28] MEDS: SERTRALINE 100 MG TAB PO SCH (09:36)
--- NOTE | 2019-02-28 10:22 | PN ---
Date/Time of Note Date/Time of Note DATE: 02/28/19 TIME: 10:22 Assessment/Plan VTE Prophylaxis Risk score (from Ns)>0 risk: 1 SCD applied (from Ns): No SCD contraindicated: low risk/ambulating Pharmacological prophylaxis: NA/contraindicated Pharm contraindication: low risk/ambulating Lines/Catheters IV [facility]from [facility] Peripheral IV Assessment/Plan Assessment/Plan 1. Mild Diabetic Ketoacidosis- resolved - patient tolerating clear diet 2. Nausea with vomiting- resolved - tolerating regular diet 3. Diabetes Mellitus with hyperglycemia- resolved - A1c noted - sugars controlled - ISS and accuchecks 4. Electrolyte derangement- resolved 5. lactic acidosis- resolved - most likely secondary to dehydration 6. Acute dehydration secondary to #2- resolved 7. Bacteremia - contaminant 8. Disposition - Medically stable for discharge home Result Diagram: 02/28/19 0436 02/28/19 0435 Results 24hrs Laboratory Tests Test 02/27/19 13:00 02/27/19 17:51 02/27/19 22:07 02/28/19 04:35 Bedside Glucose 148 136 156 Sodium Level 142 Potassium Level 4.0 Chloride Level 109 Carbon Dioxide Level 26 Anion Gap 7 Blood Urea Nitrogen 8 Creatinine 0.57 Glucose Level 145 Calcium Level 8.5 Phosphorus Level 2.9 Magnesium Level 2.0 Albumin 3.6 Test 02/28/19 04:36 02/28/19 09:30 White Blood Count 11.6 #H Red Blood Count 4.48 Hemoglobin 12.5 Hematocrit 37.5 Mean Corpuscular 83.7 Volume Mean Corpuscular 27.9 L Hemoglobin Mean Corpuscular 33.3 Hemoglobin Concent Red Cell 13.2 Distribution Width Platelet Count 179 Mean Platelet Volume 12.5 H Immature 0.300 Granulocytes % Neutrophils % 47.1 Lymphocytes % 43.7 Monocytes % 7.7 Eosinophils % 0.9 Basophils % 0.3 Nucleated Red Blood 0.0 Cells % Immature 0.030 Granulocytes # Neutrophils # 5.5 Lymphocytes # 5.1 H Monocytes # 0.9 Eosinophils # 0.1 Basophils # 0.0 Nucleated Red Blood 0.0 Cells # Bedside Glucose 142 Subjective 24 Hr Interval Summary Free Text/Dictation Patient doing well and tolerating PO diet. No acute overnight events. Exam/Review of Systems Exam Vitals Vital Signs Date Temp Pulse Resp B/P (MAP) Pulse Ox O2 O2 Flow FiO2 Time Delivery Rate 02/28/19 97.5 65 18 117/62 94 Room Air 07:33 (80) Intake and Output 02/27/19 02/27/19 02/28/19 1515:00 23:00 07:00 IntakeIntake Total 940 ml 1000 ml 250 ml BalanceBalance 940 ml 1000 ml 250 ml Exam General: no acute distress. awake and answering questions appropriately. Neck: Supple Lungs: Clear to auscultation bilaterally, no wheezing or rhonchi Heart: Normal S1-S2, Regular rhythm and rate. No murmur, S3, or S4 Abdomen: Soft , nontender, nondistended , bowel sounds are present. No guarding no rebound tenderness Extremities: Normal to inspection, no pitting, cyanosis, or clubbing Skin: no rashes or lesions Results Results 24hrs Laboratory Tests Test 02/27/19 13:00 02/27/19 17:51 02/27/19 22:07 02/28/19 04:35 Bedside Glucose 148 136 156 Sodium Level 142 Potassium Level 4.0 Chloride Level 109 Carbon Dioxide Level 26 Anion Gap 7 Blood Urea Nitrogen 8 Creatinine 0.57 Glucose Level 145 Calcium Level 8.5 Phosphorus Level 2.9 Magnesium Level 2.0 Albumin 3.6 Test 02/28/19 04:36 02/28/19 09:30 White Blood Count 11.6 #H Red Blood Count 4.48 Hemoglobin 12.5 Hematocrit 37.5 Mean Corpuscular 83.7 Volume Mean Corpuscular 27.9 L Hemoglobin Mean Corpuscular 33.3 Hemoglobin Concent Red Cell 13.2 Distribution Width Platelet Count 179 Mean Platelet Volume 12.5 H Immature 0.300 Granulocytes % Neutrophils % 47.1 Lymphocytes % 43.7 Monocytes % 7.7 Eosinophils % 0.9 Basophils % 0.3 Nucleated Red Blood 0.0 Cells % Immature 0.030 Granulocytes # Neutrophils # 5.5 Lymphocytes # 5.1 H Monocytes # 0.9 Eosinophils # 0.1 Basophils # 0.0 Nucleated Red Blood 0.0 Cells # Bedside Glucose 142 Medications Medication Current Medications Sertraline HCl (Zoloft) 100 mg DAILY PO Last administered on 02/28/19at 09:36; Admin Dose 100 MG; Start 02/27/19 at 09:00 Lorazepam (Ativan) 1 mg Q4 PRN IV anxiety Last administered on 02/26/19at 20:16; Admin Dose 1 MG; Start 02/26/19 at 17:30 Ondansetron HCl (Zofran Inj) 4 mg Q6H PRN IV NAUSEA AND/OR VOMITING; Start 02/26/19 at 17:30 Metoclopramide HCl (Reglan) 10 mg Q6H PRN IV NAUSEA AND/OR VOMITING Last administered on 02/26/19at 19:00; Admin Dose 10 MG; Start 02/26/19 at 17:30 Acetaminophen (Tylenol Tab) 650 mg Q6H PRN PO PAIN LEVEL 1-3 OR FEVER; Start 02/26/19 at 17:30 Docusate Sodium (Colace) 100 mg Q12H PRN PO CONSTIPATION; Start 02/26/19 at 17:30 Magnesium Hydroxide (Milk Of Mag) 30 ml DAILY PRN PO CONSTIPATION; Start 02/26/19 at 17:30 Famotidine (Pepcid Iv) 20 mg Q12 IV Last administered on 02/28/19at 09:36; Admin Dose 20 MG; Start 02/26/19 at 21:00 Insulin Aspart (Novolog Insulin Pen) NOVOLOG *MILD* ALGORITHM WITH MEALS BEDTIME SC Last administered on 02/28/19at 09:35; Admin Dose 1 UNIT; Start 02/26/19 at 18:00 Miscellaneous Information 1 ea NOTE XX ; Start 02/26/19 at 19:00 Glucose (Glutose) 15 gm Q15M PRN PO DECREASED GLUCOSE; Start 02/26/19 at 19:00 Glucose (Glutose) 22.5 gm Q15M PRN PO DECREASED GLUCOSE; Start 02/26/19 at 19:00 Dextrose (D50w Syringe) 25 ml Q15M PRN IV DECREASED GLUCOSE; Start 02/26/19 at 19:00 Dextrose (D50w Syringe) 50 ml Q15M PRN IV DECREASED GLUCOSE; Start 02/26/19 at 19:00 Glucagon (Glucagen) 1 mg Q15M PRN IM DECREASED GLUCOSE; Start 02/26/19 at 19:00 Glucose (Glutose) 15 gm Q15M PRN BUCCAL DECREASED GLUCOSE; Start 02/26/19 at 19:00 Insulin Glargine (Lantus) 15 units QHS SC Last administered on 02/27/19at 22:11; Admin Dose 15 UNITS; Start 02/26/19 at 22:00 Naphazoline HCl/ Pheniramine Maleate (Naphcon A) 2 drop Q6 BOTH EYES Last administered on 02/28/19at 05:09; Admin Dose 2 DROP; Start 02/27/19 at 10:00 Chlorhexidine Gluconate (Peridex) 15 ml BID MT Last administered on 02/28/19at 09:35; Admin Dose 15 ML; Start 02/27/19 at 10:30 Vancomycin HCl (Vanco Iv Per Pharmacy) VANCOMYCIN PER PHARMACY PER PROTOCOL XX ; Start 02/27/19 at 16:00 Vancomycin HCl 1.25 gm/Sodium Chloride 250 ml @ 83.333 mls/ hr Q8H IVPB Last administered on 02/28/19at 09:36; Admin Dose 83.333 MLS/HR; Start 02/28/19 at 02:00 LENKA MARTINEZ MD February 28, 2019 10:22
--- NOTE | 2019-02-28 13:46 | CONS ---
Assessment/Plan Assessment/Plan Hospital Course (Demo Recall) No acute events overnight patient is alert feels good denies pain no fevers overnight. WBC 11.6 no shift no bands BUN 8 creatinine 0.57 Microbiology: Blood culture on admission grew coag negative staph suspicious urine culture grew lactobacillus species new Antimicrobials: Vancomycin Physical examination: This is a very pleasant obese middle-aged woman who is alert in no distress. Head atraumatic normocephalic sclera nonicteric neck is supple chest rise symmetrical breath sounds clear heart S1-S2 abdomen soft bowel sounds present extremities without cyanosis Assessment: 1. Systemic inflammatory response syndrome with resolving leukocytosis 2. Coag negative staph bacteremia consistent with contaminant 3. Positive urine culture consistent with contaminant 4. Diabetes 5. Obesity Plan: Patient remains stable and overall improving, ok dc off abx Consultation Date/Type/Reason Admit Date/Time February 26, 2019 at 16:31 Initial Consult Date Type of Consult id Date/Time of Note DATE: 02/28/19 TIME: 13:45 Exam/Review of Systems Exam Vitals Vital Signs Date Temp Pulse Resp B/P (MAP) Pulse Ox O2 O2 Flow FiO2 Time Delivery Rate 02/28/19 97.5 65 18 117/62 94 Room Air 07:33 (80) Intake and Output 02/27/19 02/27/19 02/28/19 1515:00 23:00 07:00 IntakeIntake Total 940 ml 1000 ml 250 ml BalanceBalance 940 ml 1000 ml 250 ml Results Result Diagram: 02/28/19 0436 02/28/19 0435 Results 24hrs Laboratory Tests Test 02/27/19 17:51 02/27/19 22:07 02/28/19 04:35 02/28/19 04:36 Bedside Glucose 136 156 Sodium Level 142 Potassium Level 4.0 Chloride Level 109 Carbon Dioxide Level 26 Anion Gap 7 Blood Urea Nitrogen 8 Creatinine 0.57 Glucose Level 145 Calcium Level 8.5 Phosphorus Level 2.9 Magnesium Level 2.0 Albumin 3.6 White Blood Count 11.6 #H Red Blood Count 4.48 Hemoglobin 12.5 Hematocrit 37.5 Mean Corpuscular 83.7 Volume Mean Corpuscular 27.9 L Hemoglobin Mean Corpuscular 33.3 Hemoglobin Concent Red Cell 13.2 Distribution Width Platelet Count 179 Mean Platelet Volume 12.5 H Immature 0.300 Granulocytes % Neutrophils % 47.1 Lymphocytes % 43.7 Monocytes % 7.7 Eosinophils % 0.9 Basophils % 0.3 Nucleated Red Blood 0.0 Cells % Immature 0.030 Granulocytes # Neutrophils # 5.5 Lymphocytes # 5.1 H Monocytes # 0.9 Eosinophils # 0.1 Basophils # 0.0 Nucleated Red Blood 0.0 Cells # Test 02/28/19 09:30 02/28/19 12:57 Bedside Glucose 142 143 Medications Medication Current Medications Sertraline HCl (Zoloft) 100 mg DAILY PO Last administered on 02/28/19at 09:36; Admin Dose 100 MG; Start 02/27/19 at 09:00 Lorazepam (Ativan) 1 mg Q4 PRN IV anxiety Last administered on 02/26/19at 20:16; Admin Dose 1 MG; Start 02/26/19 at 17:30 Ondansetron HCl (Zofran Inj) 4 mg Q6H PRN IV NAUSEA AND/OR VOMITING; Start 02/26/19 at 17:30 Metoclopramide HCl (Reglan) 10 mg Q6H PRN IV NAUSEA AND/OR VOMITING Last administered on 02/26/19at 19:00; Admin Dose 10 MG; Start 02/26/19 at 17:30 Acetaminophen (Tylenol Tab) 650 mg Q6H PRN PO PAIN LEVEL 1-3 OR FEVER; Start 02/26/19 at 17:30 Docusate Sodium (Colace) 100 mg Q12H PRN PO CONSTIPATION; Start 02/26/19 at 17:30 Magnesium Hydroxide (Milk Of Mag) 30 ml DAILY PRN PO CONSTIPATION; Start 02/26/19 at 17:30 Famotidine (Pepcid Iv) 20 mg Q12 IV Last administered on 02/28/19at 09:36; Admin Dose 20 MG; Start 02/26/19 at 21:00 Insulin Aspart (Novolog Insulin Pen) NOVOLOG *MILD* ALGORITHM WITH MEALS BEDTIME SC Last administered on 02/28/19at 13:31; Admin Dose 1 UNIT; Start 02/26/19 at 18:00 Miscellaneous Information 1 ea NOTE XX ; Start 02/26/19 at 19:00 Glucose (Glutose) 15 gm Q15M PRN PO DECREASED GLUCOSE; Start 02/26/19 at 19:00 Glucose (Glutose) 22.5 gm Q15M PRN PO DECREASED GLUCOSE; Start 02/26/19 at 19:00 Dextrose (D50w Syringe) 25 ml Q15M PRN IV DECREASED GLUCOSE; Start 02/26/19 at 19:00 Dextrose (D50w Syringe) 50 ml Q15M PRN IV DECREASED GLUCOSE; Start 02/26/19 at 19:00 Glucagon (Glucagen) 1 mg Q15M PRN IM DECREASED GLUCOSE; Start 02/26/19 at 19:00 Glucose (Glutose) 15 gm Q15M PRN BUCCAL DECREASED GLUCOSE; Start 02/26/19 at 19:00 Insulin Glargine (Lantus) 15 units QHS SC Last administered on 02/27/19at 22:11; Admin Dose 15 UNITS; Start 02/26/19 at 22:00 Naphazoline HCl/ Pheniramine Maleate (Naphcon A) 2 drop Q6 BOTH EYES Last administered on 02/28/19 05:09; Admin Dose 2 DROP; Start 02/27/19 at 10:00 Chlorhexidine Gluconate (Peridex) 15 ml BID MT Last administered on 02/28/19at 09:35; Admin Dose 15 ML; Start 02/27/19 at 10:30 Vancomycin HCl (Vanco Iv Per Pharmacy) VANCOMYCIN PER PHARMACY PER PROTOCOL XX ; Start 02/27/19 at 16:00 Vancomycin HCl 1.25 gm/Sodium Chloride 250 ml @ 83.333 mls/ hr Q8H IVPB Last administered on 02/28/19at 09:36; Admin Dose 83.333 MLS/HR; Start 02/28/19 at 02:00 CIARAN JOSUE NP February 28, 2019 13:45
[2019-02-28 14:00] VITALS: BP 114/60; PULSE 66; RESP 18
--- NOTE | 2019-02-28 15:08 | PDOCDIS ---
Discharge Instructions DIAGNOSIS Discharge Diagnosis 1. Mild Diabetic Ketoacidosis- resolved 2. Nausea with vomiting- resolved 3. Diabetes Mellitus with hyperglycemia- improved 4. Electrolyte derangement- resolved 5. lactic acidosis- resolved 6. Acute dehydration secondary to #2- resolved 7. Bacteremia- contaminant CONDITION [id number] Patient Condition: [id number] Stable HOME CARE INSTRUCTIONS: [id number] Diet Instructions: [id number] Low Fat /Cholesterol ACTIVITY: [id number] Activity Restrictions: [id number] No Restrictions FOLLOW UP/APPOINTMENTS Follow-up Plan 1. Follow up with your primary care physician in 1 week 2. Continue eye drops as needed for tearing of eyes. This is available over the counter 3. You were only given Lantus 15 units while in the hospital but continue home regime once eating your regular diet 4. If experiencing any concerning symptoms, please go to the closest emergency department LENKA MARTINEZ MD February 28, 2019 15:08
--- NOTE | 2019-02-28 17:31 | RADRPT ---
Echocardiogram Report Patient Name: RAMIN GARCIAPatient ID: [id number] : 1990 (28y 7m)Study Date: 02/28/2019 9:07:31 AM Gender: FAccession #: [id number] Tech: Kelly [facility] Location: [id number] Ref.Physician: LENKA MARTINEZ Height(Cm): BSA: Weight(Kg): Quality: Technically Difficult StudyOrder Physician: LENKA MARTINEZ Account #: Procedures: Echocardiographic Report: Transthoracic echocardiogram with complete 2D, M-Mode, and doppler examination. Indications: Gram + blood culture. Measurements: 2D/M Mode Doppler Measurement Value Normal Range Measurement Value Normal Range LVIDd 2D 4.5 [ 3.8 - 5.2 ] cm AV Peak Abad 1.3 [ 100.0 - 170.0 ] cm/sec LVIDs 2D 2.9 [ 2.2 - 3.5 ] cm AV Peak PG 6.0 [ 2.0 - 9.0 ] mmHg LVPWd 2D 0.8 [ 0.6 - 0.9 ] cm LVOT Peak Abad 1.2 [ 70.0 - 110.0 ] cm/sec IVSd 2D 0.9 [ 0.6 - 0.9 ] cm LVOT Peak PG 5.0 [ 2.0 - 6.0 ] mmHg AoR Diam 2D 2.8 [ 2.3 - 3.1 ] cm MV E Peak Abad 1.0 [ 60.0 - 130.0 ] cm/sec EDV 2D 93.9 [ 46.0 - 106.0 ] ml MV A Peak Abad 0.7 [ 100.0 - 120.0 ] cm/sec ESV 2D 32.2 [ 14.0 - 42.0 ] ml MV E/A 1.5 [ 0.8 - 1.5 ] ratio EF 2D 65.7 [ 54.0 - 74.0 ] percent MV Decel Time 211 [ 104 - 258 ] msec LA Dimen 2D 3.3 [ 2.7 - 3.8 ] cm Lat E` Abad 0.1 [ 10.0 - 15.0 ] cm/sec Lateral E/E` 8.0 [ 1.0 - 2.0 ] ratio MV E/A 1.5 [ 0.8 - 1.5 ] ratio RA Pressure 3.0 mmHg Findings: Left Ventricle: Normal left ventricular systolic function. Normal left ventricular cavity size. Normal left ventricular wall thickness. Ejection fraction is visually estimated at 60 %. Tissue Doppler/Mitral Doppler indices are within normal limits. Right Ventricle: Normal right ventricular size. Normal right ventricular systolic function. Left Atrium: The left atrium is normal in size. Right Atrium: The right atrium is normal in size. Mitral Valve: Mitral valve is not well visualized. Mild mitral annular calcification. Trace mitral regurgitation. Aortic Valve: No hemodynamically significant aortic stenosis by doppler. Aortic cusps appear mildly calcified. Tricuspid Valve: Tricuspid valve not well visualized. There is trace tricuspid regurgitation. Pulmonic Valve: Pulmonic valve not well visualized. Pericardium: Normal pericardium with no significant pericardial effusion. Aorta: Normal aortic root. IVC: Normal size and normal respiratory collapse consistent with normal right atrial pressure. Conclusions: Normal left ventricular systolic function. Normal left ventricular cavity size. Normal left ventricular wall thickness. Ejection fraction is visually estimated at 60 %. Tissue Doppler/Mitral Doppler indices are within normal limits. Normal right ventricular size. Normal right ventricular systolic function. The left atrium is normal in size. The right atrium is normal in size. No significant valvular stenosis or regurgitation seen. Normal pericardium with no significant pericardial effusion. Electronically Signed By: Barak Ornelas 2019-02-28 17:30:53 PDT
--- NOTE | 2019-02-28 18:39 | DS ---
Date/Time of Note Date/Time of Note DATE: 02/28/19 TIME: 18:37 Discharge Summary Admission/Discharge Info Admit Date/Time February 26, 2019 at 16:31 Discharge Date/Time February 28, 2019 at 15:25 Discharge Diagnosis 1. Mild Diabetic Ketoacidosis- resolved 2. Nausea with vomiting- resolved 3. Diabetes Mellitus with hyperglycemia- improved 4. Electrolyte derangement- resolved 5. lactic acidosis- resolved 6. Acute dehydration secondary to #2- resolved 7. Bacteremia- contaminant Patient Condition: Stable Consults Infectious disease- Dr. Dyer Hx of Present Illness 28 yo F with PMH Diabetes presented to ED after experiencing persistent nausea with vomiting. Patient states she has been in her normal state of health and went to work this am at 8am. Around 10 am she started experiencing nausea with vomiting. Denies any fevers, chills, dizziness, chest pain, shortness of breath, abdominal pain, or urinary issues. She denies any recent travel or sick contact. She was admitted to [facility] a couple months ago for similar symptoms but unsure what she was diagnosed with. She admits to being compliant with medications. Patient last vomited a couple minutes prior to interview and describes as nonblood, bilious emesis. Hospital Course Patient was admitted to ICU for insulin drip but gap closed and was downgraded to telemetry. Patient was given fluid resuscitation with improvement in overall symptoms. She was able to tolerate PO intake without any issues. Patient was found with positives blood cultures and urine cultures and Infectious disease was consulted. Culture results were noted to be contamination and antibiotics were discontinued. Patient did complain of crusting of her eyes and given eye drops which helped resolve symptoms. Patient was cleared for discharge from infectious disease and discharged home in good condition. Home Meds Reported Medications Insulin Aspart* (Novolog Insulin Pen*) 100 Unit/Ml Soln, 20 UNIT SC WITH MEALS, EA 02/26/19 Insulin Glargine,Hum.rec.anlog (Basaglar Kwikpen U-100) 100 Unit/1 Ml Insuln.pen, 30 UNIT SC QHS, EA 02/26/19 Lorazepam* (Lorazepam*) 0.5 Mg Tablet, 0.5 MG PO HS PRN for ANXIETY, TAB 02/26/19 Sertraline Hcl* (Sertraline Hcl*) 100 Mg Tablet, 100 MG PO DAILY, #30 TAB 02/26/19 Discontinued Reported Medications Lactulose* (Lactulose*) 10 Gm/15 Ml Solution, 15 ML PO NEEDED, ML 02/26/19 Ondansetron Hcl* (Zofran*) 4 Mg Tab, 4 MG PO Q6H PRN for NAUSEA AND OR VOMITING, TAB 02/26/19 Discontinued Scripts Metoclopramide* (Reglan*) 10 Mg Tablet, 10 MG PO Q6 PRN for NAUSEA AND/OR VOMITING, #10 TAB Prov:GAYLE ROSAS PA-C 01/24/19 Ondansetron Hcl* (Zofran*) 4 Mg Tab, 4 MG PO Q4H PRN for NAUSEA AND OR VOMITING, #30 TAB Prov:BELLA SENA RECYCLING MANAGER 12/14/17 Insulin Glargine* (Lantus*) 100 Unit/Ml Soln, 20 UNIT SC QHS for 30 Days Prov:BELLA SENA NP 12/14/17 Follow-up Plan 1. Follow up with your primary care physician in 1 week 2. Continue eye drops as needed for tearing of eyes. This is available over the counter 3. You were only given Lantus 15 units while in the hospital but continue home regime once eating your regular diet 4. If experiencing any concerning symptoms, please go to the closest emergency department Primary Care Provider Care Physician No Primary Time spent on discharge: > 30 minutes Pending Labs Laboratory Tests Test 02/27/19 22:07 02/28/19 04:35 02/28/19 04:36 02/28/19 09:30 Bedside 156 142 Glucose mg/dL (70-220) mg/dL (70-220) Sodium Level 142 mmol/L (135-14 4) Potassium 4.0 Level mmol/L (3.5-5. 1) Chloride Level 109 mmol/L (97-110 ) Carbon Dioxide 26 Level mmol/L (21-31) Anion Gap 7 (5-13) Blood Urea 8 mg/dl (7-20) Nitrogen Creatinine 0.57 mg/dl (0.44-1. 00) Glucose Level 145 mg/dl (70-220) Calcium Level 8.5 mg/dl (8.4-10. 2) Phosphorus 2.9 Level mg/dl (2.5-4.9 ) Magnesium 2.0 Level mg/dl (1.7-2.5 ) Albumin 3.6 g/dl (3.3-4.9) White Blood 11.6 Count 10^3/ul (4.8-1 0.8) Red Blood 4.48 Count 10^6/ul (4.20- 5.40) Hemoglobin 12.5 g/dl (12.0-16. 0) Hematocrit 37.5 % (37.0-47.0) Mean 83.7 Corpuscular fl (82.0-101.0 Volume ) Mean 27.9 Corpuscular pg (29.0-33.0) Hemoglobin Mean 33.3 Corpuscular g/dl (32.0-37. Hemoglobin Conc 0) ent Red Cell 13.2 Distribution % (11.5-14.5) Width Platelet Count 179 10^3/UL (140-4 15) Mean Platelet 12.5 Volume fl (7.4-10.4) Immature 0.300 Granulocytes % % (0.001-0.429 ) Neutrophils % 47.1 % (39.0-77.0) Lymphocytes % 43.7 % (15.0-51.0) Monocytes % 7.7 % (0.0-11.0) Eosinophils % 0.9 % (0.0-7.0) Basophils % 0.3 % (0.0-2.0) Nucleated Red 0.0 Blood Cells % /100WBC (0.0-0 .0) Immature 0.030 Granulocytes # 10^3/ul (0.0-0 .031) Neutrophils # 5.5 10^3/ul (1.6-7 .5) Lymphocytes # 5.1 10^3/ul (0.8-2 .9) Monocytes # 0.9 10^3/ul (0.3-0 .9) Eosinophils # 0.1 10^3/ul (0.0-0 .5) Basophils # 0.0 10^3/ul (0.0-0 .1) Nucleated Red 0.0 Blood Cells # 10^3/ul (0.0-0 .0) Test 02/28/19 12:57 Bedside 143 Glucose mg/dL (70-220) LENKA MARTINEZ MD February 28, 2019 18:39
== END 2019-02-28 15:25 | disposition home or self-care (01) | DRG 639 ==
LOC: E/R 13:21 → MS1 16:31 → EDBEDREQSVC 02-27 06:40 → EDBEDREQ 02-27 06:40 → EDBEDREQSVC 02-27 09:42
PROVIDERS: ADMIT Internal Medicine; ATTEND Internal Medicine
PROC: 4A033R1 Measurement of Arterial Saturation, Peripheral, Percutaneous Approach (ICD-10-PCS; principal; 2019-02-26)
DX: E11.10 Type 2 diabetes mellitus with ketoacidosis without coma (principal); E86.0 Dehydration; F17.200 Nicotine dependence, unspecified, uncomplicated; E66.9 Obesity, unspecified; E87.8 Other disorders of electrolyte and fluid balance, not elsewhere classified; Z79.4 Long term (current) use of insulin
CPT/HCPCS: 36415; 71045; 80048; 80053; 80069; 81001; 81003; 82803; 82962; 83036; 83605; 83690; 83735; 84100; 84703; 85025; 87086; 93306; 96361; 96374; 96375; J0696; J1815; J2060; J2405; J2765; J3370; J3475; J3480; J7030; J7040; J7050; J7120

== ENCOUNTER 2019-03-31 07:43 | Emergency (ER) | payer OTHER ==
[~2019-03-31] VITALS: Ht 165.1 cm; Wt 99.3 kg
[~2019-03-31 07:43] MED LIST changes: +INSU100I33 SC; -LANT3I SC; +LORA0.5T PO; -METO10TA92 PO; +NOVO3I SC; -ONDA4TAB13 PO; +SERT-165 PO
[2019-03-31 07:49] VITALS: Ht 165.1 cm; Wt 99.3 kg
[2019-03-31] MEDS ORDERED: ONDANSETRON 4 MG INJ IV STA (08:01)
[2019-03-31] MEDS ORDERED: SOD CHLORIDE 0.9% IV ONE (08:30)
[2019-03-31] MEDS ORDERED: LACTATED RINGER S IV ONE (08:30)
[2019-03-31] MEDS ORDERED: LORAZEPAM 2 MG INJ IV ONE (08:30)
--- NOTE | 2019-03-31 09:06 | ERD ---
ER Documentation Chief Complaint Chief Complaint VOMITING SINCE MONDAY HX DIABETES HPI This is a 28-year-old female who presents to the emergency room with nausea and vomiting. The patient is a known history of insulin-dependent diabetes. She has multiple episodes of recurrent nausea and vomiting leading to diabetic ketoacidosis. The patient has been diagnosed with possible cyclic vomiting versus diabetic gastroparesis. She does use marijuana. Patient notes several days now of nonbloody nonbilious emesis. Mild abdominal cramping but similar to abdominal pain in the past. No fevers or chills. No significant diarrhea. Patient feels diaphoretic and ill currently. Symptoms moderate to severe. ROS All systems reviewed and are negative except as per history of present illness. Medications Home Meds Active Scripts Lorazepam* (Lorazepam*) 1 Mg Tablet, 1 MG PO Q8H PRN for NAUSEA, #8 TAB Prov:LELAND HERNÁNDEZ MD 03/31/19 Ondansetron (Ondansetron Odt) 4 Mg Tab.rapdis, 4 MG PO Q6H PRN for NAUSEA AND/OR VOMITING, #30 TAB Prov:LELAND HERNÁNDEZ MD 03/31/19 Reported Medications Insulin Aspart* (Novolog Insulin Pen*) 100 Unit/Ml Soln, 20 UNIT SC WITH MEALS, EA 02/26/19 Insulin Glargine,Hum.rec.anlog (Basaglar Kwikpen U-100) 100 Unit/1 Ml Insuln.pen, 30 UNIT SC QHS, EA 02/26/19 Lorazepam* (Lorazepam*) 0.5 Mg Tablet, 0.5 MG PO HS PRN for ANXIETY, TAB 02/26/19 Sertraline Hcl* (Sertraline Hcl*) 100 Mg Tablet, 100 MG PO DAILY, #30 TAB 02/26/19 Allergies Allergies: Coded Allergies: Milk Containing Products (Verified Allergy, Intermediate, 03/31/19) metformin (Unverified Allergy, Unknown, 03/31/19) PMhx/Soc History of Surgery: No Anesthesia Reaction: No Hx Neurological Disorder: No Hx Respiratory Disorders: No Hx Cardiac Disorders: Yes (HTN; High Cholesterol) Hx Psychiatric Problems: No Hx Miscellaneous Medical Probl: No Hx Alcohol Use: Yes ([employer] 02/24) Hx Substance Use: Yes (Marijuana use) Hx Tobacco Use: Yes Smoking Status: Current every day smoker Fmx Family History: diabetes Physical Exam Vitals Vital Signs Date Temp Pulse Resp B/P (MAP) Pulse Ox O2 O2 Flow FiO2 Time Delivery Rate 03/31/19 69 18 120/79 98 Room Air 08:30 (93) 03/31/19 98.6 80 22 173/98 98 07:49 (123) Physical Exam General: Diaphoretic Head: Normocephalic, atraumatic. Eyes: Pupils equally reactive, EOM intact ENT: Moist mucous membranes Neck: Supple, no lymphadenopathy Respiratory: Lungs clear bilaterally, no distress Cardiovascular: Tachycardia, no murmurs, rubs, or gallops Abdominal: Soft, non-tender, non-distended, no peritoneal signs, negative Chapman sign, no tenderness to McBurney's point : Deferred MSK: No edema, no unilateral swelling, 5/5 strength Neurologic: Alert and oriented, moving all extremities, normal speech, no focal weakness, no cerebellar signs Skin: No rash Psych: Normal mood Result Diagram: 03/31/19 0813 03/31/19 0813 Results 24 hrs Laboratory Tests Test 03/31/19 08:01 03/31/19 08:02 03/31/19 08:13 03/31/19 09:49 Blood Gas Blood venous Specimen Source Arterial Blood 03/31/2019 8:00: Date Drawn 57 AM Arterial Blood VENOUS LINE Gas Puncture Site Frantz Test N/A Venous Blood pH 7.550 Venous Blood 23.8 mmHG pCO2 (Temp Corrected ) Venous Blood 54.9 mmHG pO2 (Temp Corrected ) Venous Blood 20.4 mmol/L HCO3 Venous Blood 93.8 mmHG Oxygen Saturation Venous Blood 0.1 mmol/L Base Excess Venous Blood 15.9 g/dl Total Hemoglobin Venous Blood 90.8 % Oxyhemoglobin Venous Blood 0 % Methemoglobin Carboxyhemoglob 3.2 % in Blood Gas 37.0 C Temperature Blood Gas ROOM AIR Modality FiO2 21.0 % Blood Gas Critical Value Read Back Blood Gas Livier Notified Whom Blood Gas 03/31/2019 8:13: Notified Time 34 AM Bedside Glucose 225 mg/dL White Blood 14.2 10^3/ul Count Red Blood Count 5.51 10^6/ul Hemoglobin 15.2 g/dl Hematocrit 44.7 % Mean 81.1 fl Corpuscular Volume Mean 27.6 pg Corpuscular Hemoglobin Mean 34.0 g/dl Corpuscular Hemoglobin Conc ent Red Cell 13.2 % Distribution Width Platelet Count 203 10^3/UL Mean Platelet 12.8 fl Volume Immature 0.400 % Granulocytes % Neutrophils % 64.8 % Lymphocytes % 27.7 % Monocytes % 5.9 % Eosinophils % 0.8 % Basophils % 0.4 % Nucleated Red 0.0 /100WBC Blood Cells % Immature 0.060 10^3/ul Granulocytes # Neutrophils # 9.2 10^3/ul Lymphocytes # 3.9 10^3/ul Monocytes # 0.8 10^3/ul Eosinophils # 0.1 10^3/ul Basophils # 0.1 10^3/ul Nucleated Red 0.0 10^3/ul Blood Cells # Sodium Level 138 mmol/L Potassium Level 3.5 mmol/L Chloride Level 103 mmol/L Carbon Dioxide 22 mmol/L Level Anion Gap 13 Blood Urea 14 mg/dl Nitrogen Creatinine 0.78 mg/dl Est Glomerular > 60 mL/min Filtrat Rate mL/min Glucose Level 235 mg/dl Calcium Level 9.4 mg/dl Phosphorus 3.3 mg/dl Level Magnesium Level 1.6 mg/dl Urine Color YELLOW Urine Clarity CLEAR Urine pH 7.0 Urine Specific 1.014 [place] Urine Ketones 1+ mg/dL Urine Nitrite NEGATIVE mg/dL Urine Bilirubin NEGATIVE mg/dL Urine NEGATIVE mg/dL Urobilinogen Urine Leukocyte NEGATIVE Tal/ul Esterase Urine NEGATIVE mg/dL Hemoglobin Urine Glucose 2+ mg/dL Urine Total NEGATIVE mg/dl Protein POC Beta HCG, NEGATIVE Qualitative Current Medications Medications Dose Sig/Meredith Start Time Status Last (Trade) Ordered Route PRN Stop Time Admin Dose Reason Admin Sodium 990 ml @ ONCE ONCE 03/31/19 DC 03/31/19 Chloride 990 mls/hr IV 08:30 08:07 03/31/19 09:29 Ondansetron 4 mg ONCE STAT 03/31/19 DC 03/31/19 HCl (Zofran IV 08:01 08:08 Inj) 03/31/19 08:02 Lactated 990 ml @ ONCE ONCE 03/31/19 DC 03/31/19 Ringer's 990 mls/hr IV 08:30 09:02 03/31/19 09:29 Lorazepam 1 mg ONCE ONCE 03/31/19 DC 03/31/19 (Ativan) IV 08:30 08:08 03/31/19 08:31 Magnesium 100 ml @ ONCE ONCE 03/31/19 DC 03/31/19 Sulfate/ 100 mls/hr IVPB 09:30 09:47 Dextrose 03/31/19 10:29 Haloperidol 2 mg ONCE ONCE 03/31/19 DC 03/31/19 (Haldol) IV 09:30 09:47 03/31/19 09:31 Procedures/MDM LAB INTERPRETATION: I reviewed the laboratory testing and it shows reassuring venous blood gas MEDICAL DECISION MAKING: The patient's clinical exam history and presentation are likely consistent with exacerbation of her chronic cyclic vomiting versus gastroparesis. Abdominal exam is mostly benign without concern for bowel obstruction or acute intra- abdominal process such as appendicitis. Patient is at significant risk for diabetic ketoacidosis and screening will be initiated. No signs currently of infection or infarction. Fluid resuscitation and symptom control as necessary. ER COURSE: * Patient received normal saline lactated Ringer's fluid bolus. Initial venous blood gas is reassuring. * Ativan and Zofran provided. * Patient still with mild symptoms. Haldol provided. Dramatic improvement now ambulatory and symptoms much resolved. Laboratory testing does not show evidence of diabetic ketoacidosis. * At this point the patient can be safely discharged home. CONSULTATION: None DISPOSITION PLAN: The patient does not have an identifiable emergent medical condition that warrants inpatient hospitalization at this time. The patient is deemed safe for discharge with outpatient follow-up. We discussed follow up with the patient's primary care doctor within 24 to 48 hours as needed. We also discussed return to the emergency room for worsening symptoms or worsening condition. Outpatient referral: None required Discharge Medications: Ativan, Zofran Departure Diagnosis: Primary Impression: Cyclic vomiting syndrome Vomiting Intractability: non-intractable Nausea presence: with nausea Qualified Codes: G43.A0 - Cyclical vomiting, not intractable Additional Impressions: Dehydration, mild Obesity (BMI 30.0-34.9) Condition: Stable LELAND HERNÁNDEZ MD Mar 31, 2019 09:06
[2019-03-31] MEDS ORDERED: HALOPERIDOL 5 MG INJ IV ONE (09:30)
[2019-03-31] MEDS ORDERED: MAGNESIUM SULFATE 1 GM/D5W 100 ML IVPB ONE (09:30)
[2019-03-31] MEDS ORDERED: LORA1TAB PO (10:38)
[2019-03-31] MEDS ORDERED: ONDA4TAB14 PO (10:38)
[2019-03-31 13:04] VITALS: BP 132/65; PULSE 72; RESP 18
== END 2019-03-31 13:09 | disposition home or self-care (01) ==
LOC: E/R 07:43
DX: G43.A0 Cyclical vomiting, in migraine, not intractable (principal); I10 Essential (primary) hypertension; F17.210 Nicotine dependence, cigarettes, uncomplicated; E86.0 Dehydration; E66.9 Obesity, unspecified; E11.9 Type 2 diabetes mellitus without complications; Z68.34 Body mass index [BMI] 34.0-34.9, adult; Z79.4 Long term (current) use of insulin
CPT/HCPCS: 36415; 80048; 81003; 81025; 82803; 82962; 83735; 84100; 85025; 96374; 96375; 99284; J1630; J2060; J2405; J3475; J7030; J7120

== ENCOUNTER 2019-08-03 04:50 | Emergency (ER) | payer OTHER ==
[~2019-08-03] VITALS: Ht 165.1 cm; Wt 92.5 kg
[~2019-08-03 04:50] MED LIST changes: +LORA1TAB PO; +ONDA4TAB14 PO; +ONDA8TAB14 PO; +PROC10TA10 PO
[2019-08-03 04:53] VITALS: Ht 165.1 cm; Wt 92.5 kg
[2019-08-03] MEDS ORDERED: ONDANSETRON 4 MG INJ IV STA (04:56)
[2019-08-03] MEDS ORDERED: SOD CHLORIDE 0.9% IV ONE (05:00)
[2019-08-03] MEDS ORDERED: LORAZEPAM 2 MG INJ IV ONE (06:00)
[2019-08-03] MEDS ORDERED: INSULIN LISPRO 100 UNIT/ML VIAL SC ONE (07:00)
[2019-08-03] MEDS ORDERED: ACCU-CHEK XX ONE (07:00)
[2019-08-03 08:02] VITALS: BP 128/72; PULSE 66; RESP 20
== END 2019-08-03 08:51 | disposition home or self-care (01) ==
LOC: E/R 04:50
DX: E11.65 Type 2 diabetes mellitus with hyperglycemia (principal); R11.2 Nausea with vomiting, unspecified; I10 Essential (primary) hypertension; Z79.4 Long term (current) use of insulin
CPT/HCPCS: 36415; 80048; 81001; 81025; 82803; 82962; 83735; 84100; 85025; 96372; 96374; 96375; 99284; J1815; J2060; J2405; J7030; 81003